=== PATIENT | male | born 1940 | race Caucasian/White ===

== ENCOUNTER 2016-08-21 22:10 | Emergency (ER) | payer MEDICARE, OTHER, SELFPAY ==
[2016-08-21 22:16] VITALS: BP 160/87
--- NOTE | 2016-08-22 00:05 | EDM.PDOC ---
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 Pt states that he was at the local bar tonight and had "2-3 drinks". Patient doesn't recall how he fell or why he was lying on the ground, but states that he didn't pass out or lose consciousness. He denies any complaints of pain or injury. Broke his upper dentures sometime between when he left the bar and when he was found lying outside beside his truck. States that he follows w/ Dr. Hendrickson regularly. Takes one baby aspirin daily. Denies history of CVA, heart attack and brain bleed. - Related Data Allergies Allergy/AdvReac Type Severity Reaction Status Date / Time No Known Allergies Allergy Verified 08/21/16 22:16 Home Meds: Home Meds Aspirin [Children's Aspirin] 81 mg PO DAILY 08/21/16 [History] Past Medical History - Past Health History Medical/Surgical History: Denies Medical/Surgical History Social & Family History - Family History Family Medical History: Noncontributory - Tobacco Use Smoking Status *Q: Never Smoker - Caffeine Use Caffeine Use: Reports: None - Alcohol Use Days Per Week of Alcohol Use: 4 Number of Drinks Per Day: 4 Total Drinks Per Week: 16 - Recreational Drug Use Recreational Drug Use: No ED ROS GENERAL - Review of Systems Review Of Systems: ROS reveals no pertinent complaints other than HPI. ED EXAM, HEAD INJURY - Physical Exam Exam: See Below Text/Narrative:: smells heavily of alcohol Exam Limited By: Intoxication General Appearance: Alert, WD/WN, No Apparent Distress, Other (speech is mildly slurred) Head: Normocephalic, Other (1cm abrasion above L eyebrow. Dried blood below nose and to lips. Abrasion to chin. No other wounds. ). No: Scalp Swelling, Scalp Tenderness, Tuttle's Sign, Facial Swelling, Facial Tenderness, Raccoon Eyes Nexus Criteria: Evidence of Intoxication. No: Posterior, Midline Cervical Tenderness, Altered Level of Consciousness, Focal Neurological Deficit, Painful Distraction Injuries Eyes: Bilateral Eye: EOMI, Normal Inspection, Nystagmus (none), PERRL Ears: Normal TMs Nose: Normal Inspection. No: Nasal Deformity, Nasal Swelling, Nasal Tenderness Throat/Mouth: Normal Inspection, Normal Oropharynx Neck: Non-Tender, Full Range of Motion, Other (No step-offs or tenderness over c -spine) Respiratory: Lungs Clear, Normal Breath Sounds Cardiovascular: Regular Rate, Rhythm, No Murmur, No Rub Neurologic: No Motor/Sensory Deficits, Normal Mood/Affect, Oriented x 3 Course - Vital Signs Text/Narrative:: 1220: awaiting call from radiology re: CT reports. Last Recorded V/S: Last Vital Signs Temp 95.9 F 08/21/16 22:11 Pulse 87 08/21/16 22:11 Resp 18 08/21/16 22:11 BP 160/87 H 08/21/16 22:11 Pulse Ox 96 08/21/16 22:11 - Orders/Labs/Meds Orders: Active Orders 24 hr Category Date Time Status Cervical Spine wo Cont [CT] Stat Exams 08/21/16 22:42 Taken Head wo Cont [CT] Stat Exams 08/21/16 22:42 Taken Max Facial Sinus wo Cont [CT] Stat Exams 08/21/16 22:42 Taken Departure - Departure Time of Disposition: 00:35 Disposition: Home, Self-Care 01 Condition: Good Clinical Impression: Fall Qualifiers: Encounter type: initial encounter Qualified Code(s): W19.XXXA - Unspecified fall, initial encounter Alcohol intoxication Qualifiers: Complication of substance-induced condition: uncomplicated Qualified Code(s): F10.920 - Alcohol use, unspecified with intoxication, uncomplicated - Discharge Information Referrals: Roderick Hendrickson MD [Primary Care Provider] - Forms: ED Department Discharge Additional Instructions: Return to ER as needed, as discussed. Phone ER nurse at [phone] with questions or concerns. - My Orders Last 24 Hours: My Active Orders 08/21/16 22:42 Cervical Spine wo Cont [CT] Stat Head wo Cont [CT] Stat Max Facial Sinus wo Cont [CT] Stat - Assessment/Plan Last 24 Hours: My Active Orders 08/21/16 22:42 Cervical Spine wo Cont [CT] Stat Head wo Cont [CT] Stat Max Facial Sinus wo Cont [CT] Stat Assessment:: fall alcohol intoxication Plan: Dr. Davis, radiologist at [facility], calls with phone report of CT head, face, c-spine: all are negative for acute changes and fractures.[pt is notified of normal results. Patient will be discharged and transported to home by local PD. Patient verbalized understanding.
== END 2016-08-22 00:50 | disposition home or self-care (01) ==
LOC: CC.ED 22:10
DX: F10.920 Alcohol use, unspecified with intoxication, uncomplicated (principal); W19.XXXA Unspecified fall, initial encounter; Z79.82 Long term (current) use of aspirin
CPT/HCPCS: 70450; 70486; 72125; 99283; 99284

== ENCOUNTER 2016-08-24 10:24 | Inpatient (IN) | payer MEDICARE, SELFPAY ==
[~2016-08-24 10:24] MED LIST: Nicotine 7 MG/24 Hr Patch TRDERM SCH
[2016-08-24] MEDS ORDERED: Acetaminophen 325 MG Tab PO PRN (11:16)
[2016-08-24] MEDS ORDERED: Ibuprofen 200 MG Tab PO PRN (11:16)
[2016-08-24] MEDS ORDERED: Sodium Chloride 0.9% 1,000 ML IV ONE (11:30)
[2016-08-24 12:09] LABS: CHLORIDE,CL 103 mEq/L (98-106); SODIUM,NA 138 mEq/L (136-145)
[2016-08-24] MEDS: Enoxaparin 40 MG/0.4 ML Syringe SUBCUT SCH (13:04)
[2016-08-24] MEDS ORDERED: Sodium Chloride 0.9% 1,000 ML IV SCH (19:30)
--- NOTE | 2016-08-24 22:14 | PCM.HP ---
H&P History of Present Illness - General Date of Service: 08/24/16 Admit Problem/Dx: Admission Diagnosis/Problem Admission Diagnosis/Problem Chest pain Source of Information: Patient History Limitations: Reports: No Limitations - History of Present Illness Initial Comments - Free Text/Narative: History and physical: History of present illness: [Patient is admitted to the [facility] unit after presenting to the clinic this morning with complaints of recent falls and episodes of chest pain. He has not had medical care in the past 5-6 years but previously followed with Dr. Hendrickson. He states that he has fallen several times since Wednesday. He denies loss of consciousness, and hitting his head, other than the episode on August 21 when he presented to the emergency room. He did not lose consciousness but fell on his face breaking his dentures. That time he was found lying beside his truck and was brought to the emergency room for evaluation. Head CT was normal. He complains of stiffness in his legs and numbness in both of his feet. he believes that these symptoms are contributing to his falls. he also admits to a feeling in his arms wrist and hips. He admits to having a squeezing sensation over his left chest wall that gradually radiates to the right side. His last episode of this was or around August 21. He denies any episodes yesterday or today. He has shortness of breath with a squeezing sensation but does not have any shortness of breath with it. He has not noticed any sweating or nausea. No abdominal pain or vomiting. No swelling in his feet or lower legs. Denies fainting.] Review of Systems: As per history of present illness and below otherwise all systems reviewed and negative. Past medical history: As per history of present illness and as reviewed below otherwise noncontributory. Surgical history: As per history of present illness and is reviewed below other amezquita noncontributory. Social history: Patient reports that he drinks 3-4 alcoholic beverages only on Fridays. One can of chewing tobacco last longer than 1 week. Family history: As per history of present illness and is reviewed below otherwise noncontributory. Physical exam: HEENT: Atraumatic, normocephalic. PERRLA. Is not wearing upper dentures. Mucous membranes are pink and moist. Throat is clear. Neck is supple no lymphadenopathy. No thyromegaly or carotid bruit. Lungs: Clear to auscultation, breath sounds equal bilaterally, chest nontender. Heart: S1-S2, regular rate and rhythm., negative for clicks, rubs, or murmur. Abdomen: Bowel sounds are normoactive. Ventral hernia noted on examination. Abdomen is Soft, nondistended, nontender. Negative for masses or guarding rebound. Negative for costovertebral tenderness. Pelvis: Stable, nontender. Genitourinary: Deferred. Rectal: Deferred. Extremities: atraumatic, and without deformity. Patient has full range of motion and walks without difficulty. No swelling or cyanosis noted to feet for lower legs. No calf pain. Neurovascular unremarkable. Hand hot braider is strong and equal bilaterally. Neuro: Awake, alert, oriented. Motor and sensory unremarkable throughout. Exam nonfocal. Diagnostics: [CBC, CMP, folate, CRP, vitamin B12, urinalysis, troponin, EKG, magnesium, chest x-ray] Impression: [Falls Chest pain] Plan: [Patient will be admitted to [facility] unit with telemetry for further workup and continued monitoring. He is in agreement with today's plan.] Definitive disposition and diagnosis is appropriate pending reevaluation and review of above. - Related Data Allergies/Adverse Reactions: Allergies Allergy/AdvReac Type Severity Reaction Status Date / Time No Known Allergies Allergy Verified 08/24/16 11:01 Home Medications: Home Meds Aspirin [Children's Aspirin] 81 mg PO DAILY 08/21/16 [History] Past Medical History - Past Health History Medical/Surgical History: Denies Medical/Surgical History Social & Family History - Family History Family Medical History: Noncontributory - Tobacco Use Smoking Status *Q: Former Smoker Years of Tobacco use: 30 Used Tobacco, but Quit: Yes Month Tobacco Last Used: unknown - Caffeine Use Caffeine Use: Reports: Coffee - Alcohol Use Days Per Week of Alcohol Use: 1 Number of Drinks Per Day: 5 Total Drinks Per Week: 5 - Recreational Drug Use Recreational Drug Use: No H&P Review of Systems - Review of Systems: Review Of Systems: ROS reveals no pertinent complaints other than HPI. Exam - Exam Exam: See Below - Vital Signs Vital Signs: Last Vital Signs Temp 98.8 F 08/24/16 19:36 Pulse 80 08/24/16 19:36 Resp 18 08/24/16 19:36 BP 158/90 H 08/24/16 19:36 Pulse Ox 95 08/24/16 19:36 Weight: 210 lb 8 oz - Patient Data Lab Results Last 24 hrs: Laboratory Results - last 24 hr 08/24/16 08/24/16 08/24/16 Range/Units 11:16 11:16 13:45 WBC 7.0 (5.0-10.0) 10^3/uL RBC 5.05 (4.50-6.00) 10^6/uL Hgb 16.2 (14.0-18.0) g/dL Hct 46.6 (40.0-54.0) % MCV 92.3 (82.0-94.0) fL MCH 32.1 H (27.0-32.0) pg MCHC 34.8 (33.0-38.0) g/dL RDW Coeff of Yoel 12.9 (11.0-15.0) % Plt Count 161 (150-400) 10^3/uL Neut % (Auto) 67.0 (35-85) % Lymph % (Auto) 23.7 (10-55) % [place] % (Auto) 8.1 (0-16) % Eos % (Auto) 0.9 (0-5) % Baso % (Auto) 0.3 (0-3) % Neut # (Auto) 4.70 (1.80-7.00) 10^3/uL Lymph # (Auto) 1.66 (1.00-4.80) 10^3/uL [place] # (Auto) 0.57 (0.00-0.80) 10^3/uL Eos # (Auto) 0.06 (0.00-0.45) 10^3/uL Baso # (Auto) 0.02 10^3/uL Sodium 138 (136-145) mEq/L Potassium 4.3 (3.5-5.0) mEq/L Chloride 103 (98-106) mEq/L Carbon Dioxide 30 (21-32) mmol/L BUN 11 (7-18) mg/dL Creatinine 1.3 (0.7-1.3) mg/dL Est Cr Clr Drug Dosing 46.04 mL/min Estimated GFR (MDRD) 54 L (>=60) mL/min Glucose 109 H (75-99) mg/dL Calcium 8.5 (8.4-10.1) mg/dL Magnesium 2.1 (1.8-2.4) mg/dL Total Bilirubin 1.9 H (0.0-1.0) mg/dL AST 20 (15-37) U/L ALT 25 (12-78) U/L Alkaline Phosphatase 75 (46-116) U/L Troponin I < 0.017 (0.00-0.06) ng/mL C-Reactive Protein 0.9 H (0.2-0.8) mg/dL Total Protein 6.8 (6.4-8.2) g/dL Albumin 3.6 (3.4-5.0) g/dL Vitamin B12 267 (193-986) PG/ML Folate 6.5 (>8.6) NG/ML Urine Color Keri (YELLOW) Urine Appearance Slightly cloudy (CLEAR) Urine pH 6.0 (4.5-8.0) Ur Specific [place] 1.013 (1.003-1.020) Urine Protein Negative (NEGATIVE) mg/dL Urine Glucose (UA) Negative (NEGATIVE) mg/dL Urine Ketones Negative (NEGATIVE) mg/dL Urine Occult Blood Negative (NEGATIVE) Urine Nitrite Negative (NEGATIVE) Urine Bilirubin Negative (NEGATIVE) Urine Urobilinogen 1.0 (0.2-1.0) EU/dL Ur Leukocyte Esterase Negative (NEGATIVE) Urine RBC Not seen (0-5) /HPF Urine WBC Not seen (0-5) /HPF Ur Epithelial Cells Few H (NOT SEEN) /HPF Urine Mucus Moderate H (NOT SEEN) /HPF Result Diagrams: 08/24/16 11:16 08/24/16 11:16 *Q Meaningful Use (ADM) - VTE *Q VTE Criteria *Q: - Stroke *Q Stroke Criteria *Q: - AMI *Q AMI Criteria *Q: Problem List Initiated/Reviewed/Updated: Yes Orders Last 24hrs: Active Orders 24 hr Category Date Time Status Patient Status [ADT] Routine ADT 08/24/16 11:16 Active Antiembolic Devices [RC] 1000,2200 Care 08/24/16 11:20 Active Cardiac Monitoring [RC] 0800,2000 Care 08/24/16 11:20 Active Height and Weight [RC] .PRN Care 08/24/16 11:16 Active May Shower [RC] .PRN Care 08/24/16 11:16 Active Oxygen Therapy [RC] .PRN Care 08/24/16 11:16 Active Up With Assistance [RC] .PRN Care 08/24/16 11:16 Active Vital Signs [RC] 0000,0400,0800,1200,1600,2000 Care 08/24/16 11:16 Active Consult to Flatbed Stitcher [CONS] Routine Cons 08/24/16 11:16 Active OT Evaluation and Treatment [CONS] Routine Cons 08/24/16 11:16 Active PT Evaluation and Treatment [CONS] Routine Cons 08/24/16 11:16 Active Regular Diet [DIET] Diet 08/24/16 Lunch Active Chest 2V [CR] Stat Exams 08/24/16 11:16 Taken Acetaminophen [Tylenol] Med 08/24/16 11:16 Active 650 mg PO Q4H PRN Enoxaparin [Lovenox] Med 08/24/16 08:00 Active 40 mg SUBCUT Q24H Ibuprofen [Motrin] Med 08/24/16 11:16 Active 600 mg PO Q6H PRN Sodium Chloride 0.9% [Normal Saline] 1,000 ml Med 08/24/16 19:30 Active IV ASDIRECTED Antiembolic Hose [OM.PC] Per Unit Routine Oth 08/24/16 11:20 Ordered Resuscitation Status Routine Resus Stat 08/24/16 11:16 Ordered Medication Orders Acetaminophen (Tylenol) 650 mg PO Q4H PRN PRN Reason: Pain (Mild 1-3)/fever Enoxaparin Sodium (Lovenox) 40 mg SUBCUT Q24H [facility] Last Admin: 08/24/16 13:04 Dose: 40 mg Sodium Chloride (Normal Saline) 1,000 mls @ 30 mls/hr IV ASDIRECTED [facility] PRN Reason: KVO Stop: 08/28/16 19:31 Last Admin: 08/24/16 20:53 Dose: 30 mls/hr Ibuprofen (Motrin) 600 mg PO Q6H PRN PRN Reason: Pain (mild 1-3) Assessment/Plan Comment:: Assessment: #1 chest pain #2 falls Plan: We'll admit to [facility] with telemetry. EKG chest x-ray and labs are ordered. Patient may require emergent cardiac consultation depending troponin and if he experiences any EKG changes or symptoms. Patient verbalizes understanding of today's plan and is in agreement.
[2016-08-24] MEDS ORDERED: Temazepam 15 MG Cap PO ONE (22:59)
[2016-08-25] MEDS: Enoxaparin 40 MG/0.4 ML Syringe SUBCUT SCH (07:33)
[2016-08-25] MEDS ORDERED: Sodium Chloride 0.9% 10 ML Syringe FLUSH PRN (15:59)
--- NOTE | 2016-08-25 16:15 | PCM.PN ---
- General Info Date of Service: 08/25/16 Admission Dx/Problem (Free Text): Admission Diagnosis/Problem Admission Diagnosis/Problem Chest pain, falls Subjective Update: [facility] through the clinic for complaints of chest pain and falls. Patient is doing well while inpatient. He states that the numbness in his feet has significantly improved but continues to be present. He reports mild chest discomfort that he did not report to his nurse earlier this morning. Patient had a few second run of V tach on telemetry while he was sleeping last night and again early this morning. Has not had any episodes during his waking hours. EKG completed after episode was normal sinus rhythm. Patient states that he is overall feeling improved today. Functional Status: Reports: tolerating diet, ambulating - Review of Systems General: Reports: No Symptoms HEENT: Reports: no symptoms Pulmonary: Reports: no symptoms Cardiovascular: Reports: Chest Pain. Denies: Dyspnea on Exertion, Edema, Lightheadedness Gastrointestinal: Reports: No symptoms Genitourinary: Reports: no symptoms Musculoskeletal: Reports: no symptoms Neurological: Reports: No Symptoms Psychiatric: Reports: no symptoms - Patient Data Vitals - most recent: Last Vital Signs Temp 97.7 F 08/25/16 11:45 Pulse 78 08/25/16 11:45 Resp 16 08/25/16 11:45 BP 165/84 H 08/25/16 11:45 Pulse Ox 96 08/25/16 11:45 Weight - most recent: 210 lb 8 oz I&O - last 24 hours: Intake & Output 08/25/16 08/25/16 08/25/16 06:59 14:59 22:59 Intake Total 860 Balance 860 Lab Results last 24 hrs: Laboratory Results - last 24 hr 08/25/16 Range/Units 05:11 Troponin I < 0.017 (0.00-0.06) ng/mL Med Orders - Current: Current Medications Acetaminophen (Tylenol) 650 mg PO Q4H PRN PRN Reason: Pain (Mild 1-3)/fever Enoxaparin Sodium (Lovenox) 40 mg SUBCUT Q24H [facility] Last Admin: 08/25/16 07:33 Dose: 40 mg Ibuprofen (Motrin) 600 mg PO Q6H PRN PRN Reason: Pain (mild 1-3) Sodium Chloride (Saline Flush) 10 ml FLUSH ASDIRECTED PRN PRN Reason: Keep Vein Open Discontinued Medications Sodium Chloride (Normal Saline) 1,000 mls @ 125 mls/hr IV ONETIME ONE Stop: 08/24/16 19:29 Last Admin: 08/24/16 12:57 Dose: 125 mls/hr Sodium Chloride (Normal Saline) 1,000 mls @ 30 mls/hr IV ASDIRECTED BARRON PRN Reason: KVO Stop: 08/28/16 19:31 Last Admin: 08/24/16 20:53 Dose: 30 mls/hr Nicotine (Habitrol) 7 mg TRDERM DAILY [facility] Last Admin: 08/24/16 12:33 Dose: Not Given Temazepam (Restoril) 15 mg PO ONETIME ONE Stop: 08/24/16 23:00 Last Admin: 08/24/16 23:14 Dose: 15 mg - Exam General: alert, oriented Neck: supple Lungs: Clear to auscultation, Normal respiratory effort Cardiovascular: Regular Rate, Regular Rhythm Abdomen: bowel sounds present, soft, no tenderness Extremities: no edema Neurological: no new focal deficit Psy/Mental Status: alert, normal affect - Problem List Review Problem List Initiated/Reviewed/Updated: Yes - My Orders Last 24 Hours: My Active Orders 08/24/16 22:56 EKG Documentation Completion [RC] STAT 08/25/16 15:59 Sodium Chloride 0.9% [Saline Flush] 10 ml FLUSH ASDIRECTED PRN Convert IV to Saline Lock [OM.PC] Routine - Plan Plan:: Assessment: #1 chest pain #2 falls Plan: Continue telemetry, current medications. Dr. Hendrickson is to see patient on rounds tomorrow morning. Patient will likely cardiology consultation.
[2016-08-25] MEDS ORDERED: Temazepam 15 MG Cap PO ONE (21:19)
[2016-08-26] MEDS: Enoxaparin 40 MG/0.4 ML Syringe SUBCUT SCH (07:53)
--- NOTE | 2016-08-26 12:59 | PN ---
DATE: 08/26/2016 S: A 76-year-old gentleman admitted with chest pain on Wednesday. Talking with him today, he has no further chest pain. Complains lot of pain in his legs. O: NECK: On examination, neck was supple. CHEST: Clear. HEART: Cardiac sounds are good. EXTREMITIES: He had tenderness over his knees, but I really did not see any other pain. So maybe coming from his back. P: Get appropriate lab work today, observe him, make sure PT works on him. KRISTEN/SINAI /[id number]
[2016-08-26] MEDS ORDERED: Temazepam 15 MG Cap PO PRN (16:30)
[2016-08-27] MEDS: Enoxaparin 40 MG/0.4 ML Syringe SUBCUT SCH (07:50)
[2016-08-27 13:28] VITALS: BP 155/84
--- NOTE | 2016-08-28 07:03 | DISCH ---
HOSPITAL COURSE: Silvestre Lowery 76-year-old gentleman came in with some chest pain, back pain, unable to ambulate, admitted to the hospital, placed on telemetry to look good. EKG, chest x-ray, full cardiac workup was good as is with the rest of his lab and x-ray. PHYSICAL EXAMINATION ON DISCHARGE: NECK: Supple. CHEST: Clear. CARDIAC: Regular. GENERAL: Is up moving around. Physical therapy had helped him dramatically, demanded to go home. DISPOSITION: The patient will be discharged home. I will recheck him next Wednesday. DISCHARGE MEDICATIONS: ASA as at home. DISCHARGE DIAGNOSIS: 1. CHEST PAIN, PROBABLE MUSCULOSKELETAL. 2. OSTEOARTHRITIS OF LUMBAR SPINE. KRISTEN/SINAI /[id number]
== END 2016-08-27 15:40 | disposition home or self-care (01) | DRG 313 ==
LOC: UNDOADMIN 10:24 → CC.MS 10:24
PROVIDERS: ADMIT Nurse Practitioner Family; ATTEND General Practice
DX: R07.9 Chest pain, unspecified (principal); M47.896 Other spondylosis, lumbar region; R29.6 Repeated falls; Z87.891 Personal history of nicotine dependence
CPT/HCPCS: 36415; 71020; 80053; 81001; 82607; 82746; 83735; 83880; 84439; 84443; 84484; 85025; 85379; 85651; 86140; 93005; 93306; 97110-GP; 97112-GP; 97161-GP; A9270-GY; J1650; J7030

== ENCOUNTER 2018-09-28 08:49 | Emergency (ER) | payer MEDICARE, MEDICAID ==
[2018-09-28 09:30] LABS: CHLORIDE,CL 102 mEq/L (98-106); SODIUM,NA 137 mEq/L (136-145)
--- NOTE | 2018-09-28 11:15 | EDM.PDOC ---
ED HPI GENERAL MEDICAL PROBLEM - General Chief Complaint: General Stated Complaint: CHEST PAIN Time Seen by Provider: 09/28/18 09:45 Source of Information: Reports: Patient History Limitations: Reports: No Limitations - History of Present Illness INITIAL COMMENTS - FREE TEXT/NARRATIVE: Silvestre is a 78 yo male who presents to the ED per wheelchair after presenting to the clinic complaining of chest pain. Silvestre states that he has been having pain off and on in his mid chest for the last two to three days. Pt states that he has been having pain in his abdomen too, generalized. Also feels nauseated and has decreased appetite. He is vague with his complaints. Last bowel movement a couple days ago but that is typical for him. Pain worse to chest and abdomen after eating. States the pain in his chest has subsided now. Still feels unsettled in his abdomen. Middle Chest Pain Score (Numeric/FACES): 5 - Related Data Allergies Allergy/AdvReac Type Severity Reaction Status Date / Time No Known Allergies Allergy Verified 09/28/18 09:26 Home Meds: Home Meds Aspirin [Children's Aspirin] 81 mg PO DAILY 08/21/16 [History] Sertraline HCl 50 mg PO DAILY 09/28/18 [History] Zolpidem Tartrate 10 mg PO BEDTIME PRN 09/28/18 [History] Past Medical History - Past Health History Medical/Surgical History: Denies Medical/Surgical History HEENT History: Reports: None Cardiovascular History: Reports: None Respiratory History: Reports: None Gastrointestinal History: Reports: Chronic Constipation Genitourinary History: Reports: None Musculoskeletal History: Reports: Back Pain, Chronic, Other (See Below) (spinal stenosis) Psychiatric History: Reports: Anxiety, Depression Social & Family History - Family History Family Medical History: Noncontributory - Tobacco Use Smoking Status *Q: Former Smoker Years of Tobacco use: 30 Packs/Tins Daily: 1 Used Tobacco, but Quit: Yes Month/Year Tobacco Last Used: 20 years ago - Caffeine Use Caffeine Use: Reports: Coffee ED ROS GENERAL - Review of Systems Review Of Systems: See Below Constitutional: Reports: Decreased Appetite. Denies: Fever, Chills HEENT: Reports: No Symptoms Respiratory: Reports: No Symptoms Cardiovascular: Reports: Chest Pain. Denies: Blood Pressure Problem, Edema, Lightheadedness, Palpitations GI/Abdominal: Reports: Abdominal Pain, Constipation, Decreased Appetite, Flatus , Nausea. Denies: Bloody Stool, Difficulty Swallowing, Vomiting : Reports: No Symptoms Musculoskeletal: Reports: Back Pain, Muscle Stiffness (bilateral lower legs, chronic) Skin: Reports: No Symptoms Neurological: Reports: No Symptoms Psychiatric: Reports: Anxiety ED EXAM, GENERAL - Physical Exam Exam: See Below Exam Limited By: No Limitations General Appearance: Alert, WD/WN, No Apparent Distress Eye Exam: Bilateral Eye: Normal Inspection Ears: Normal External Exam, Normal Canal, Normal TMs, Hearing Loss Nose: Normal Inspection, Normal Mucosa, No Blood Throat/Mouth: Normal Inspection, Normal Gums, Normal Oropharynx, No Airway Compromise Head: Atraumatic, Normocephalic Neck: Normal Inspection, Supple Respiratory/Chest: No Respiratory Distress, Lungs Clear, Normal Breath Sounds, No Accessory Muscle Use, Decreased Breath Sounds (right lower lobe) Cardiovascular: Regular Rate, Rhythm, No Edema, No Murmur Peripheral Pulses: 2+: Dorsalis Pedis (L), Dorsalis Pedis (R) GI/Abdominal: Normal Bowel Sounds, Soft, No Organomegaly, No Distention, No Mass , Tender (mild generalized, states feels like knots in his stomach). No: Rebound Extremities: Normal Inspection, No Pedal Edema Neurological: Alert, Oriented, Normal Cognition, No Motor/Sensory Deficits Psychiatric: Normal Affect, Normal Mood Skin Exam: Warm, Dry, Intact, Normal Color Course - Vital Signs Last Recorded V/S: Last Vital Signs Temp 96.8 F 09/28/18 09:41 Pulse 64 09/28/18 09:54 Resp 18 09/28/18 09:41 BP 154/75 H 09/28/18 09:54 Pulse Ox 98 09/28/18 09:54 - Orders/Labs/Meds Orders: Active Orders 24 hr Category Date Time Status Abdomen 2V AP Flat Upright [CR] Stat Exams 09/28/18 09:27 Taken Chest 2V [CR] Stat Exams 09/28/18 08:57 Taken EKG 12 Lead [EK] Routine Ther 09/28/18 08:55 Ordered Labs: Laboratory Tests 09/28/18 09/28/18 09/28/18 Range/Units 09:00 09:00 09:00 WBC 7.5 (5.0-10.0) 10^3/uL RBC 5.19 (4.50-6.00) 10^6/uL Hgb 17.1 (14.0-18.0) g/dL Hct 48.3 (40.0-54.0) % MCV 93.1 (82.0-94.0) fL MCH 32.9 H (27.0-32.0) pg MCHC 35.4 (33.0-38.0) g/dL RDW Coeff of Yoel 12.8 (11.0-15.0) % Plt Count 163 (150-400) 10^3/uL Neut % (Auto) 59.7 (35-85) % Lymph % (Auto) 31.6 (10-55) % [place] % (Auto) 7.6 (0-16) % Eos % (Auto) 0.8 (0-5) % Baso % (Auto) 0.3 (0-3) % Neut # (Auto) 4.47 (1.80-7.00) 10^3/uL Lymph # (Auto) 2.36 (1.00-4.80) 10^3/uL [place] # (Auto) 0.57 (0.00-0.80) 10^3/uL Eos # (Auto) 0.06 (0.00-0.45) 10^3/uL Baso # (Auto) 0.02 10^3/uL PT 9.8 (9.7-12.3) SEC INR 0.95 (0.92-1.18) APTT 28.3 (23.2-32.3) SEC Sodium 137 (136-145) mEq/L Potassium 4.3 (3.5-5.0) mEq/L Chloride 102 (98-106) mEq/L Carbon Dioxide 28 (21-32) mmol/L BUN 15 (7-18) mg/dL Creatinine 1.2 (0.7-1.3) mg/dL Est Cr Clr Drug Dosing 46.67 mL/min Estimated GFR (MDRD) 58 L (>=60) mL/min Glucose 106 H (75-99) mg/dL Calcium 9.1 (8.4-10.1) mg/dL Total Bilirubin 1.9 H (0.0-1.0) mg/dL AST 16 (15-37) U/L ALT 23 (12-78) U/L Alkaline Phosphatase 73 (46-116) U/L Lactate Dehydrogenase 137 (100-190) U/L Creatine Kinase 24 L (35-232) U/L Troponin I < 0.017 (0.00-0.06) ng/mL C-Reactive Protein < 0.2 L (0.2-0.8) mg/dL Total Protein 6.6 (6.4-8.2) g/dL Albumin 3.7 (3.4-5.0) g/dL Departure - Departure Time of Disposition: 11:16 Disposition: Home, Self-Care 01 Clinical Impression: Atypical chest pain GERD (gastroesophageal reflux disease) Qualifiers: Esophagitis presence: esophagitis presence not specified Qualified Code(s): K21.9 - Gastro-esophageal reflux disease without esophagitis - Discharge Information Instructions: Heartburn, [id number], Nonspecific Chest Pain Forms: ED Department Discharge Additional Instructions: 1) Lexiscan scheduled for heart tomorrow morning, instructions given 2) Recommend taking Prilosec over the counter daily for 2 weeks 3) Return to ED if symptoms worsen or any concerns at all 4) Follow up with primary provider in 1 week for recheck. - Problem List & Annotations (1) Atypical chest pain SNOMED Code(s): 223605100 Code(s): R07.89 - OTHER CHEST PAIN Status: Acute Current Visit: Yes (2) GERD (gastroesophageal reflux disease) SNOMED Code(s): 739893302 Code(s): K21.9 - GASTRO-ESOPHAGEAL REFLUX DISEASE WITHOUT ESOPHAGITIS Status: Acute Current Visit: Yes Qualifiers: Esophagitis presence: esophagitis presence not specified Qualified Code(s) : K21.9 - Gastro-esophageal reflux disease without esophagitis - My Orders Last 24 Hours: My Active Orders 09/28/18 08:55 EKG 12 Lead [EK] Routine 09/28/18 08:57 Chest 2V [CR] Stat 09/28/18 09:27 Abdomen 2V AP Flat Upright [CR] Stat - Assessment/Plan Last 24 Hours: My Active Orders 09/28/18 08:55 EKG 12 Lead [EK] Routine 09/28/18 08:57 Chest 2V [CR] Stat 09/28/18 09:27 Abdomen 2V AP Flat Upright [CR] Stat Plan: Silvestre's chest pain subsided while in ED, it appears to be daily and intermittent. Ashley scheduled for tomorrow with Dr. De La Torre since he has spinal stenosis and unable to do treadmill portion. Recommend starting over the counter Prilosec daily as well. Cardiac work up is unremarkable. EKG showed NSR at 64 bpm. CRP was normal. No definitive cause found.
[2018-09-28 11:16] VITALS: BP 142/73; PULSE 61
== END 2018-09-28 11:30 | disposition home or self-care (01) ==
LOC: CC.ED 08:49
DX: K21.9 Gastro-esophageal reflux disease without esophagitis (principal); R07.89 Other chest pain; F41.9 Anxiety disorder, unspecified; F32.9 Major depressive disorder, single episode, unspecified; Z79.82 Long term (current) use of aspirin; Z79.899 Other long term (current) drug therapy; Z87.891 Personal history of nicotine dependence
CPT/HCPCS: 36415; 71046; 74019; 80053; 82550; 83615; 84484; 85025; 85610; 85730; 86140; 93005; 93010; 99284; 99285-25

== ENCOUNTER 2019-03-15 21:16 | Inpatient (IN) | payer MEDICARE, MEDICAID ==
[2019-03-15 22:20] LABS: CHLORIDE,CL 98 mEq/L (98-106); SODIUM,NA 136 mEq/L (136-145)
[2019-03-15] MEDS ORDERED: Ondansetron 4 MG Tab.DIS PO ONE (22:34)
--- NOTE | 2019-03-15 23:33 | EDM.PDOC ---
ED HPI GENERAL MEDICAL PROBLEM - General Chief Complaint: Head Injury Stated Complaint: fall with hematoma back of head Time Seen by Provider: 03/15/19 21:30 Source of Information: Reports: Patient, EMS, Family History Limitations: Reports: Intoxication - History of Present Illness INITIAL COMMENTS - FREE TEXT/NARRATIVE: Patient presents to ER after a fall in front of his home. Patient had been up at the bar, drove home and was walking in to his apartment and fell. Is unsure why he fell, thinks maybe his legs gave out or "he passed out". Admits to drinking 5-6 whiskey drinks. Did crawl in to the apartment and was able to get help. Was placed in c-collar at the scene by EMS. Denies any head pain or neck discomfort. He did have an emesis prior to arrival. Has been having issues with weakness in his legs for several years, has caused falls in the past. On arrival to ER, states "doesn't feel good" but has no specific complaints except nausea. GCS on arrival 15. Onset: Today, Sudden Duration: Minutes: Location: Reports: Generalized Quality: Reports: Ache Severity: Mild Associated Symptoms: Reports: Nausea/Vomiting, Weakness. 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 - Related Data Allergies Allergy/AdvReac Type Severity Reaction Status Date / Time No Known Allergies Allergy Verified 03/15/19 22:08 Home Meds: Home Meds Acetaminophen [Tylenol] 325 mg PO BID PRN 03/15/19 [History] Sertraline HCl 150 mg PO BEDTIME 03/15/19 [History] Vit A/C/E AC/Znox/Cupric Oxide [Eye Vitamin-Minerals Tablet] 1 each PO DAILY [History] tiZANidine HCl [Tizanidine HCl] 4 mg PO BEDTIME 03/15/19 [History] Past Medical History - Past Health History Medical/Surgical History: Denies Medical/Surgical History HEENT History: Reports: None Cardiovascular History: Reports: None Respiratory History: Reports: None Gastrointestinal History: Reports: Chronic Constipation Genitourinary History: Reports: None Musculoskeletal History: Reports: Back Pain, Chronic, Other (See Below) Other Musculoskeletal History: chronic leg pain. Psychiatric History: Reports: Anxiety, Depression Social & Family History - Family History Family Medical History: Noncontributory - Tobacco Use Smoking Status *Q: Never Smoker - Caffeine Use Caffeine Use: Reports: Coffee ED ROS GENERAL - Review of Systems Review Of Systems: See Below Constitutional: Reports: Malaise, Weakness, Fatigue. Denies: Fever, Chills, Decreased Appetite HEENT: Denies: Ear Pain, Nosebleed, Sinus Problem, Throat Pain, Vertigo, Vision Change Respiratory: Denies: Shortness of Breath, Wheezing, Cough Cardiovascular: Denies: Chest Pain, Edema, Lightheadedness Endocrine: Reports: Fatigue GI/Abdominal: Reports: Nausea, Vomiting. Denies: Abdominal Pain, Constipation, Diarrhea, Decreased Appetite : Reports: No Symptoms Musculoskeletal: Reports: Back Pain, Leg Pain (chronic in nature) Skin: Reports: Wound (scraped knees, skin tear to right elbow, right hand) Neurological: Denies: Headache Psychiatric: Reports: No Symptoms ED EXAM, HEAD INJURY - Physical Exam Exam: See Below Text/Narrative:: On arrival, patient is alert, intoxicated but answers questions appropriately. Is unsure why he fell Airway is patent, lung sounds are diminished but clear Cardiac regular S1, S2 Abdomen/pelvis is soft, nontender. No pelvic pain C-collar intact. GCS 15. Has abrasion to right elbow, right hand and bilateral knees. Exam Limited By: Intoxication General Appearance: Alert, WD/WN, No Apparent Distress Head: Atraumatic, Normocephalic Nexus Criteria: Evidence of Intoxication. No: Posterior, Midline Cervical Tenderness, Altered Level of Consciousness, Focal Neurological Deficit, Painful Distraction Injuries Eyes: Bilateral Eye: EOMI, PERRL Ears: Normal External Exam, Normal TMs Nose: Normal Inspection, Normal Mucousa, No Blood Throat/Mouth: Normal Inspection, Normal Oropharynx Neck: Non-Tender, Other (c-collar intact) Respiratory: No Respiratory Distress, Decreased Breath Sounds Cardiovascular: Regular Rate, Rhythm GI/Abdominal Exam: Normal Bowel Sounds, Soft, Non-Tender Back Exam: Normal Inspection, Full Range of Motion Extremities: Normal Inspection, No Pedal Edema, Other (simple skin tear to right elbow and right 5th digit. Abrasions to knees) Neurologic: Alert, Oriented x 3 Skin: Normal Color, Warm/Dry - [place] Coma Score Best Eye Response ([place]): (4) Open Spontaneously Best Verbal Response ([place]): (5) Oriented Best Motor Response ([place]): (6) Obeys Commands Course - Vital Signs Last Recorded V/S: Last Vital Signs Temp 98.6 F 03/16/19 12:00 Pulse 98 03/16/19 12:00 Resp 18 03/16/19 12:00 BP 151/69 H 03/16/19 12:00 Pulse Ox 99 03/16/19 12:00 - Orders/Labs/Meds Orders: Active Orders 24 hr Category Date Time Status Neuro Check [RC] 0000,0400,0800,1200,1600,1999 Care 03/15/19 23:58 Active Oxygen Therapy [RC] .PRN Care 03/15/19 23:58 Active Up With Assistance [RC] .PRN Care 03/15/19 23:58 Active Vital Signs [RC] 0000,0400,0800,1200,1600,1999 Care 03/15/19 23:58 Active Consult to Case Management/Nut And Bolt Assembler [CONS] Cons 03/16/19 08:39 Active Routine Abdomen Pelvis w Cont [CT] Routine Exams 03/16/19 09:28 Taken Brain wo Cont [MR] Routine Exams 03/17/19 08:15 Ordered Cervical Spine wo Cont [CT] Stat Exams 03/15/19 21:45 Taken Chest 2V [CR] Routine Exams 03/16/19 08:38 Taken Chest w Cont [CT] Routine Exams 03/16/19 09:28 Taken Head wo Cont [CT] Stat Exams 03/15/19 21:27 Taken Thoracic Spine wo Cont [CT] Routine Exams 03/16/19 05:11 Taken Acetaminophen [Tylenol] Med 03/15/19 23:58 Active 650 mg PO Q4H PRN Beta-Carotene(A) w/C & E/Min [Prosight] Med 03/16/19 08:00 Active 1 tab PO DAILY Lactated Ringers [Ringers, Lactated] 1,000 ml Med 03/15/19 23:58 Active IV ASDIRECTED Ondansetron [Zofran ODT] Med 03/15/19 23:58 Active 4 mg PO Q4H PRN Ondansetron [Zofran] Med 03/15/19 23:58 Active 4 mg IV Q4H PRN Sertraline [Zoloft] Med 03/16/19 20:00 Active 150 mg PO BEDTIME Sodium Chloride 0.9% [Saline Flush] Med 03/15/19 23:58 Active 10 ml FLUSH ASDIRECTED PRN tiZANidine [Zanaflex] Med 03/16/19 20:00 Active 4 mg PO BEDTIME Peripheral IV Insertion Adult [OM.PC] Routine Oth 03/15/19 23:58 Ordered Resuscitation Status Routine Resus Stat 03/15/19 23:34 Ordered Medication Orders Acetaminophen (Tylenol) 650 mg PO Q4H PRN PRN Reason: Pain (Mild 1-3)/fever Ceftriaxone Sodium (Rocephin) 1 gm IVPUSH Q24H [facility] Lactated Ringer's (Ringers, Lactated) 1,000 mls @ 75 mls/hr IV ASDIRECTED [facility] Last Admin: 03/16/19 00:50 Dose: 75 mls/hr Clindamycin Phosphate 300 mg/ (Premix) 50 mls @ 100 mls/hr IV Q6H [facility] Multivitamins/Minerals (Prosight) 1 tab PO DAILY [facility] Last Admin: 03/16/19 08:13 Dose: 1 tab Ondansetron HCl (Zofran Odt) 4 mg PO Q4H PRN PRN Reason: nausea, able to take PO Last Admin: 03/16/19 08:13 Dose: 4 mg Admin: 03/16/19 03:25 Dose: 4 mg Ondansetron HCl (Zofran) 4 mg IV Q4H PRN PRN Reason: Nausea/Vomiting Sertraline HCl (Zoloft) 150 mg PO BEDTIME [facility] Sodium Chloride (Saline Flush) 10 ml FLUSH ASDIRECTED PRN PRN Reason: Keep Vein Open Tizanidine HCl (Zanaflex) 4 mg PO BEDTIME [facility] Labs: Laboratory Tests 03/15/19 03/15/19 03/16/19 Range/Units 22:00 22:00 06:55 WBC 12.1 H 9.3 (5.0-10.0) 10^3/uL RBC 5.07 4.92 (4.50-6.00) 10^6/uL Hgb 15.7 15.2 (14.0-18.0) g/dL Hct 46.2 44.8 (40.0-54.0) % MCV 91.1 91.1 (82.0-94.0) fL MCH 31.0 30.9 (27.0-32.0) pg MCHC 34.0 33.9 (33.0-38.0) g/dL RDW Coeff of Yoel 13.4 13.2 (11.0-15.0) % Plt Count 215 211 (150-400) 10^3/uL Neut % (Auto) 53.4 68.0 (35-85) % Lymph % (Auto) 38.5 23.9 (10-55) % [place] % (Auto) 6.4 7.0 (0-16) % Eos % (Auto) 1.5 0.9 (0-5) % Baso % (Auto) 0.2 0.2 (0-3) % Neut # (Auto) 6.44 6.31 (1.80-7.00) 10^3/uL Lymph # (Auto) 4.64 2.22 (1.00-4.80) 10^3/uL [place] # (Auto) 0.77 0.65 (0.00-0.80) 10^3/uL Eos # (Auto) 0.18 0.08 (0.00-0.45) 10^3/uL Baso # (Auto) 0.02 0.02 10^3/uL Sodium 136 (136-145) mEq/L Potassium 3.9 (3.5-5.0) mEq/L Chloride 98 (98-106) mEq/L Carbon Dioxide 25 (21-32) mmol/L BUN 18 (7-18) mg/dL Creatinine 1.1 (0.7-1.3) mg/dL Est Cr Clr Drug Dosing 45.60 mL/min Estimated GFR (MDRD) > 60 (>=60) mL/min Glucose 122 H (75-99) mg/dL Calcium 8.8 (8.4-10.1) mg/dL Total Bilirubin 0.6 (0.0-1.0) mg/dL AST 18 (15-37) U/L ALT 20 (12-78) U/L Alkaline Phosphatase 102 (46-116) U/L Troponin I < 0.017 (0.00-0.06) ng/mL Total Protein 6.9 (6.4-8.2) g/dL Albumin 3.7 (3.4-5.0) g/dL Ethyl Alcohol 201 H (0-3) mg/dL 03/16/19 Range/Units 06:55 WBC (5.0-10.0) 10^3/uL RBC (4.50-6.00) 10^6/uL Hgb (14.0-18.0) g/dL Hct (40.0-54.0) % MCV (82.0-94.0) fL MCH (27.0-32.0) pg MCHC (33.0-38.0) g/dL RDW Coeff of Yoel (11.0-15.0) % Plt Count (150-400) 10^3/uL Neut % (Auto) (35-85) % Lymph % (Auto) (10-55) % [place] % (Auto) (0-16) % Eos % (Auto) (0-5) % Baso % (Auto) (0-3) % Neut # (Auto) (1.80-7.00) 10^3/uL Lymph # (Auto) (1.00-4.80) 10^3/uL [place] # (Auto) (0.00-0.80) 10^3/uL Eos # (Auto) (0.00-0.45) 10^3/uL Baso # (Auto) 10^3/uL Sodium 137 (136-145) mEq/L Potassium 4.4 (3.5-5.0) mEq/L Chloride 99 (98-106) mEq/L Carbon Dioxide 27 (21-32) mmol/L BUN 17 (7-18) mg/dL Creatinine 1.0 (0.7-1.3) mg/dL Est Cr Clr Drug Dosing 50.16 mL/min Estimated GFR (MDRD) > 60 (>=60) mL/min Glucose 95 (75-99) mg/dL Calcium 8.3 L (8.4-10.1) mg/dL Total Bilirubin (0.0-1.0) mg/dL AST (15-37) U/L ALT (12-78) U/L Alkaline Phosphatase (46-116) U/L Troponin I (0.00-0.06) ng/mL Total Protein (6.4-8.2) g/dL Albumin (3.4-5.0) g/dL Ethyl Alcohol (0-3) mg/dL Meds: Medications Generic Name Dose Route Start Last Admin Trade Name Baldomero PRN Reason Stop Dose Admin Acetaminophen 650 mg 03/15/19 23:58 Tylenol PO Q4H PRN Pain (Mild 1-3)/fever Ceftriaxone Sodium 1 gm 03/17/19 08:00 Rocephin IVPUSH Q24H [facility] Lactated Ringer's 1,000 mls @ 75 mls/hr 03/15/19 23:58 03/16/19 00:50 Ringers, Lactated IV 75 mls/hr ASDIRECTED [facility] Administration Clindamycin Phosphate 300 mg/ 50 mls @ 100 mls/hr 03/16/19 12:00 Premix IV Q6H [facility] Multivitamins/Minerals 1 tab 03/16/19 08:00 03/16/19 08:13 Prosight PO 1 tab DAILY [facility] Administration Ondansetron HCl 4 mg 03/15/19 23:58 03/16/19 08:13 Zofran Odt PO 4 mg Q4H PRN Administration nausea, able to take PO Ondansetron HCl 4 mg 03/15/19 23:58 Zofran IV Q4H PRN Nausea/Vomiting Sertraline HCl 150 mg 03/16/19 20:00 Zoloft PO BEDTIME [facility] Sodium Chloride 10 ml 03/15/19 23:58 Saline Flush FLUSH ASDIRECTED PRN Keep Vein Open Tizanidine HCl 4 mg 03/16/19 20:00 Zanaflex PO BEDTIME [facility] Discontinued Medications Generic Name Dose Route Start Last Admin Trade Name Baldomero PRN Reason Stop Dose Admin Acetaminophen 325 mg 03/15/19 23:58 Tylenol PO 03/16/19 00:56 BID PRN Pain Barium Sulfate 900 ml 03/16/19 11:25 03/16/19 11:47 Readi-Cat 2 PO 03/16/19 11:26 900 ml ONETIME ONE Administration Ceftriaxone Sodium 1 gm 03/16/19 11:10 03/16/19 11:31 Rocephin IM 03/16/19 11:11 Not Given ONETIME ONE Ceftriaxone Sodium 1 gm 03/16/19 11:25 03/16/19 11:59 Rocephin IVPUSH 03/16/19 11:26 1 gm ONETIME ONE Administration Azithromycin 500 mg/ Sodium 250 mls @ 250 mls/hr 03/16/19 11:15 03/16/19 12: 03 Chloride IV Not Given Q24H [facility] Iopamidol 100 ml 03/16/19 11:25 03/16/19 11:46 Isovue-370 (76%) IVPUSH 03/16/19 11:26 100 ml ONETIME ONE Administration Ondansetron HCl 4 mg 03/15/19 22:34 03/15/19 22:36 Zofran Odt PO 03/15/19 22:35 4 mg ONETIME ONE Administration - Re-Assessments/Exams Free Text/Narrative Re-Assessment/Exam: 03/15/[address] scan negative of head and neck. Does note T1-T3 compression fractures. Radiologist suggested dedicated CT of thoracic spine when able. Labs essentially negative, blood alcohol 201. Did have another emesis in ER, Zofran given. Will admit for IV fluids, CT scan and neurological monitoring Departure - Departure Time of Disposition: 23:29 Disposition: Refer to Observation Condition: Fair Clinical Impression: Intoxication Fall Qualifiers: Encounter type: initial encounter Qualified Code(s): W19.XXXA - Unspecified fall, initial encounter Thoracic compression fracture Qualifiers: Encounter type: initial encounter Thoracic vertebra fracture level: T2 Qualified Code(s): S22.020A - Wedge compression fracture of second thoracic vertebra, initial encounter for closed fracture - Discharge Information *PRESCRIPTION DRUG MONITORING PROGRAM REVIEWED*: No *COPY OF PRESCRIPTION DRUG MONITORING REPORT IN PATIENT JIMMY: No Sepsis Event Note - Evaluation Sepsis Screening Result: No Definite Risk - Focused Exam Vital Signs: Vital Signs Temp Pulse Resp BP Pulse Ox 03/16/19 08:00 98.0 F 108 H 18 143/80 H 90 L 03/16/19 03:29 96.7 F 94 20 134/75 97 03/16/19 01:12 89 97 Date Exam was Performed: 03/16/19 Time Exam was Performed: 12:10 - Problem List & Annotations (1) Fall SNOMED Code(s): 4354727, 947701496 Code(s): W19.XXXA - UNSPECIFIED FALL, INITIAL ENCOUNTER Status: Acute Priority: High Current Visit: No Qualifiers: Encounter type: initial encounter Qualified Code(s): W19.XXXA - Unspecified fall, initial encounter (2) Intoxication SNOMED Code(s): 42995046 Code(s): NWW3628 - Status: Acute Priority: High Current Visit: No (3) Thoracic compression fracture SNOMED Code(s): 380366575 Code(s): S22.000A - WEDGE COMPRESSION FRACTURE OF UNSP THORACIC VERTEBRA, INIT Status: Acute Priority: High Current Visit: No Qualifiers: Encounter type: initial encounter Thoracic vertebra fracture level: T2 Qualified Code(s): S22.020A - Wedge compression fracture of second thoracic vertebra, initial encounter for closed fracture - Problem List Review Problem List Initiated/Reviewed/Updated: Yes - My Orders Last 24 Hours: My Active Orders 03/15/19 21:27 Head wo Cont [CT] Stat 03/15/19 21:45 Cervical Spine wo Cont [CT] Stat 03/15/19 23:34 Resuscitation Status Routine 03/15/19 23:58 Neuro Check [RC] 0000,0400,0800,1200,1600,2000 Oxygen Therapy [RC] .PRN Up With Assistance [RC] .PRN Vital Signs [RC] 0000,0400,0800,1200,1600,2000 Acetaminophen [Tylenol] 650 mg PO Q4H PRN Lactated Ringers [Ringers, Lactated] 1,000 ml IV ASDIRECTED Ondansetron [Zofran ODT] 4 mg PO Q4H PRN Ondansetron [Zofran] 4 mg IV Q4H PRN Sodium Chloride 0.9% [Saline Flush] 10 ml FLUSH ASDIRECTED PRN Peripheral IV Insertion Adult [OM.PC] Routine 03/16/19 05:11 Thoracic Spine wo Cont [CT] Routine 03/16/19 08:00 Beta-Carotene(A) w/C & E/Min [Prosight] 1 tab PO DAILY 03/16/19 08:38 Chest 2V [CR] Routine 03/16/19 08:39 Consult to Case Management/Nut And Bolt Assembler [CONS] Routine 03/16/19 09:28 Abdomen Pelvis w Cont [CT] Routine Chest w Cont [CT] Routine 03/16/19 20:00 Sertraline [Zoloft] 150 mg PO BEDTIME tiZANidine [Zanaflex] 4 mg PO BEDTIME 03/17/19 08:15 Brain wo Cont [MR] Routine - Assessment/Plan Admission H&P: Please use this note as an admission H&P Last 24 Hours: My Active Orders 03/15/19 21:27 Head wo Cont [CT] Stat 03/15/19 21:45 Cervical Spine wo Cont [CT] Stat 03/15/19 23:34 Resuscitation Status Routine 03/15/19 23:58 Neuro Check [RC] 0000,0400,0800,1200,1600,2000 Oxygen Therapy [RC] .PRN Up With Assistance [RC] .PRN Vital Signs [RC] 0000,0400,0800,1200,1600,2000 Acetaminophen [Tylenol] 650 mg PO Q4H PRN Lactated Ringers [Ringers, Lactated] 1,000 ml IV ASDIRECTED Ondansetron [Zofran ODT] 4 mg PO Q4H PRN Ondansetron [Zofran] 4 mg IV Q4H PRN Sodium Chloride 0.9% [Saline Flush] 10 ml FLUSH ASDIRECTED PRN Peripheral IV Insertion Adult [OM.PC] Routine 03/16/19 05:11 Thoracic Spine wo Cont [CT] Routine 03/16/19 08:00 Beta-Carotene(A) w/C & E/Min [Prosight] 1 tab PO DAILY 03/16/19 08:38 Chest 2V [CR] Routine 03/16/19 08:39 Consult to Case Management/Nut And Bolt Assembler [CONS] Routine 03/16/19 09:28 Abdomen Pelvis w Cont [CT] Routine Chest w Cont [CT] Routine 03/16/19 20:00 Sertraline [Zoloft] 150 mg PO BEDTIME tiZANidine [Zanaflex] 4 mg PO BEDTIME 03/17/19 08:15 Brain wo Cont [MR] Routine Assessment:: 1. Fall 2. T2, T3 compression fracture 3. Intoxication
[2019-03-15] MEDS ORDERED: Sodium Chloride 0.9% 10 ML Syringe FLUSH PRN (23:58)
[2019-03-15] MEDS ORDERED: Ondansetron 4 MG/2 ML SDV IV PRN (23:58)
[2019-03-15] MEDS ORDERED: Acetaminophen 325 MG Tab PO PRN ×2 (23:58)
[2019-03-16] MEDS: Lactated Ringers 1,000 ML IV SCH ×2 (00:50→16:10)
[2019-03-16] MEDS: Ondansetron 4 MG Tab.DIS PO PRN ×3 (03:25→19:22)
[2019-03-16 07:32] LABS: CHLORIDE,CL 99 mEq/L (98-106); SODIUM,NA 137 mEq/L (136-145)
[2019-03-16] MEDS ORDERED: Beta-Carotene (Vitamin A) w/Vitamin C & E plus Minerals Tab PO SCH (08:00)
[2019-03-16] MEDS ORDERED: cefTRIAXone 1 GM Vial IM ONE (11:10)
[2019-03-16] MEDS ORDERED: Azithromycin 500 MG in Sodium Chloride 0.9% 250 ML IV SCH (11:15)
[2019-03-16] MEDS ORDERED: Barium Sulfate Oral Susp 450 ML Bottle PO ONE (11:25)
[2019-03-16] MEDS ORDERED: Iopamidol 755 Mg/ML 100 ML Bottle IVPUSH ONE (11:25)
[2019-03-16] MEDS ORDERED: cefTRIAXone 1 GM Vial IVPUSH ONE (11:25)
[2019-03-16] MEDS: Clindamycin Phosphate in D5W 300 MG in Premix Bag 1 BAG IV SCH ×6 (12:19→23:55)
[2019-03-16] MEDS: tiZANidine 4 MG Tab**OWN MED PO SCH (19:19)
[2019-03-16] MEDS: Sertraline 100 MG Tab PO SCH (19:19)
--- NOTE | 2019-03-16 20:35 | PCM.PN ---
- General Info Date of Service: 03/16/19 Admission Dx/Problem (Free Text): Thoracic compression fracture Functional Status: Reports: Pain Controlled, Tolerating Diet, Ambulating - Review of Systems General: Reports: Weakness. Denies: Fever, Fatigue, Malaise HEENT: Denies: Headaches Pulmonary: Reports: Shortness of Breath. Denies: Cough Cardiovascular: Denies: Chest Pain, Lightheadedness Gastrointestinal: Reports: Abdominal Pain, Nausea. Denies: Vomiting Genitourinary: Reports: No Symptoms Musculoskeletal: Reports: Leg Pain Skin: Reports: Other (wounds to knees, right elbow) Neurological: Reports: Difficulty Walking, Weakness Psychiatric: Reports: No Symptoms - Patient Data Vitals - Most Recent: Last Vital Signs Temp 98.5 F 03/16/19 20:00 Pulse 103 H 03/16/19 20:00 Resp 20 03/16/19 20:00 BP 133/67 03/16/19 20:00 Pulse Ox 94 L 03/16/19 20:00 Weight - Most Recent: 188 lb 12.8 oz I&O - Last 24 Hours: Intake & Output 03/16/19 03/16/19 03/16/19 06:59 14:59 22:59 Intake Total 1050 Balance 1050 Lab Results Last 24 Hours: Laboratory Results - last 24 hr 03/15/19 03/15/19 03/16/19 Range/Units 22:00 22:00 06:55 WBC 12.1 H 9.3 (5.0-10.0) 10^3/uL RBC 5.07 4.92 (4.50-6.00) 10^6/uL Hgb 15.7 15.2 (14.0-18.0) g/dL Hct 46.2 44.8 (40.0-54.0) % MCV 91.1 91.1 (82.0-94.0) fL MCH 31.0 30.9 (27.0-32.0) pg MCHC 34.0 33.9 (33.0-38.0) g/dL RDW Coeff of Yoel 13.4 13.2 (11.0-15.0) % Plt Count 215 211 (150-400) 10^3/uL Neut % (Auto) 53.4 68.0 (35-85) % Lymph % (Auto) 38.5 23.9 (10-55) % [place] % (Auto) 6.4 7.0 (0-16) % Eos % (Auto) 1.5 0.9 (0-5) % Baso % (Auto) 0.2 0.2 (0-3) % Neut # (Auto) 6.44 6.31 (1.80-7.00) 10^3/uL Lymph # (Auto) 4.64 2.22 (1.00-4.80) 10^3/uL [place] # (Auto) 0.77 0.65 (0.00-0.80) 10^3/uL Eos # (Auto) 0.18 0.08 (0.00-0.45) 10^3/uL Baso # (Auto) 0.02 0.02 10^3/uL Sodium 136 (136-145) mEq/L Potassium 3.9 (3.5-5.0) mEq/L Chloride 98 (98-106) mEq/L Carbon Dioxide 25 (21-32) mmol/L BUN 18 (7-18) mg/dL Creatinine 1.1 (0.7-1.3) mg/dL Est Cr Clr Drug Dosing 45.60 mL/min Estimated GFR (MDRD) > 60 (>=60) mL/min Glucose 122 H (75-99) mg/dL Calcium 8.8 (8.4-10.1) mg/dL Total Bilirubin 0.6 (0.0-1.0) mg/dL AST 18 (15-37) U/L ALT 20 (12-78) U/L Alkaline Phosphatase 102 (46-116) U/L Troponin I < 0.017 (0.00-0.06) ng/mL Total Protein 6.9 (6.4-8.2) g/dL Albumin 3.7 (3.4-5.0) g/dL Amylase (25-115) U/L Lipase (73-393) U/L Ethyl Alcohol 201 H (0-3) mg/dL 03/16/19 03/16/19 Range/Units 06:55 15:01 WBC (5.0-10.0) 10^3/uL RBC (4.50-6.00) 10^6/uL Hgb (14.0-18.0) g/dL Hct (40.0-54.0) % MCV (82.0-94.0) fL MCH (27.0-32.0) pg MCHC (33.0-38.0) g/dL RDW Coeff of Yoel (11.0-15.0) % Plt Count (150-400) 10^3/uL Neut % (Auto) (35-85) % Lymph % (Auto) (10-55) % [place] % (Auto) (0-16) % Eos % (Auto) (0-5) % Baso % (Auto) (0-3) % Neut # (Auto) (1.80-7.00) 10^3/uL Lymph # (Auto) (1.00-4.80) 10^3/uL [place] # (Auto) (0.00-0.80) 10^3/uL Eos # (Auto) (0.00-0.45) 10^3/uL Baso # (Auto) 10^3/uL Sodium 137 (136-145) mEq/L Potassium 4.4 (3.5-5.0) mEq/L Chloride 99 (98-106) mEq/L Carbon Dioxide 27 (21-32) mmol/L BUN 17 (7-18) mg/dL Creatinine 1.0 (0.7-1.3) mg/dL Est Cr Clr Drug Dosing 50.16 mL/min Estimated GFR (MDRD) > 60 (>=60) mL/min Glucose 95 (75-99) mg/dL Calcium 8.3 L (8.4-10.1) mg/dL Total Bilirubin (0.0-1.0) mg/dL AST (15-37) U/L ALT (12-78) U/L Alkaline Phosphatase (46-116) U/L Troponin I (0.00-0.06) ng/mL Total Protein (6.4-8.2) g/dL Albumin (3.4-5.0) g/dL Amylase 60 (25-115) U/L Lipase 63 L (73-393) U/L Ethyl Alcohol (0-3) mg/dL Med Orders - Current: Current Medications Acetaminophen (Tylenol) 650 mg PO Q4H PRN PRN Reason: Pain (Mild 1-3)/fever Last Admin: 03/16/19 16:18 Dose: 650 mg Ceftriaxone Sodium (Rocephin) 1 gm IVPUSH Q24H [facility] Lactated Ringer's (Ringers, Lactated) 1,000 mls @ 75 mls/hr IV ASDIRECTED [facility] Last Admin: 03/16/19 16:10 Dose: 75 mls/hr Clindamycin Phosphate 300 mg/ (Premix) 50 mls @ 100 mls/hr IV Q6H [facility] Last Admin: 03/16/19 17:43 Dose: 100 mls/hr Preservision Eye MultivitaminOwn Med 1 each PO DAILY [facility] Ondansetron HCl (Zofran Odt) 4 mg PO Q4H PRN PRN Reason: nausea, able to take PO Last Admin: 03/16/19 19:22 Dose: 4 mg Ondansetron HCl (Zofran) 4 mg IV Q4H PRN PRN Reason: Nausea/Vomiting Sertraline HCl (Zoloft) 150 mg PO BEDTIME [facility] Last Admin: 03/16/19 19:19 Dose: 150 mg Sodium Chloride (Saline Flush) 10 ml FLUSH ASDIRECTED PRN PRN Reason: Keep Vein Open Tizanidine HCl (Zanaflex) 4 mg PO BEDTIME [facility] Last Admin: 03/16/19 19:19 Dose: 4 mg Discontinued Medications Acetaminophen (Tylenol) 325 mg PO BID PRN PRN Reason: Pain Stop: 03/16/19 00:56 Barium Sulfate (Readi-Cat 2) 900 ml PO ONETIME ONE Stop: 03/16/19 11:26 Last Admin: 03/16/19 11:47 Dose: 900 ml Ceftriaxone Sodium (Rocephin) 1 gm IM ONETIME ONE Stop: 03/16/19 11:11 Last Admin: 03/16/19 11:31 Dose: Not Given Ceftriaxone Sodium (Rocephin) 1 gm IVPUSH ONETIME ONE Stop: 03/16/19 11:26 Last Admin: 03/16/19 11:59 Dose: 1 gm Azithromycin 500 mg/ Sodium (Chloride) 250 mls @ 250 mls/hr IV Q24H [facility] Last Admin: 03/16/19 12:03 Dose: Not Given Iopamidol (Isovue-370 (76%)) 100 ml IVPUSH ONETIME ONE Stop: 03/16/19 11:26 Last Admin: 03/16/19 11:46 Dose: 100 ml Multivitamins/Minerals (Prosight) 1 tab PO DAILY [facility] Last Admin: 03/16/19 08:13 Dose: 1 tab Ondansetron HCl (Zofran Odt) 4 mg PO ONETIME ONE Stop: 03/15/19 22:35 Last Admin: 03/15/19 22:36 Dose: 4 mg - Exam Quality Assessment: Supplemental Oxygen General: Alert, Oriented, Cooperative HEENT: Mucous Membr. Moist/[place] Neck: Supple Lungs: Decreased Breath Sounds Cardiovascular: Regular Rate, Regular Rhythm GI/Abdominal Exam: Normal Bowel Sounds, Soft, Non-Tender Extremities: Normal Inspection, No Pedal Edema Skin: Other (abrasions to bilateral knees; skin tear to right elbow ) Neurological: No New Focal Deficit Sepsis Event Note - Evaluation Sepsis Screening Result: No Definite Risk - Focused Exam Vital Signs: Vital Signs Temp Temp Pulse Resp BP BP Pulse Ox 03/16/19 20:00 98.5 F 103 H 20 133/67 94 L 03/16/19 16:00 99.0 F 110 H 18 143/65 H 90 L 03/16/19 12:00 98.6 F 98 18 151/69 H 99 Date Exam was Performed: 03/16/19 Time Exam was Performed: 20:30 - Problem List & Annotations (1) Fall SNOMED Code(s): 8856652, 887828964 Code(s): W19.XXXA - UNSPECIFIED FALL, INITIAL ENCOUNTER Status: Acute Priority: High Current Visit: Yes Qualifiers: Encounter type: initial encounter Qualified Code(s): W19.XXXA - Unspecified fall, initial encounter (2) Intoxication SNOMED Code(s): 11441543 Code(s): UCF5132 - Status: Acute Priority: High Current Visit: Yes (3) Thoracic compression fracture SNOMED Code(s): 505954084 Code(s): S22.000A - WEDGE COMPRESSION FRACTURE OF UNSP THORACIC VERTEBRA, INIT Status: Acute Priority: High Current Visit: Yes Qualifiers: Encounter type: initial encounter Thoracic vertebra fracture level: T2 Qualified Code(s): S22.020A - Wedge compression fracture of second thoracic vertebra, initial encounter for closed fracture (4) Pneumonia SNOMED Code(s): 786530564 Code(s): J18.9 - PNEUMONIA, UNSPECIFIED ORGANISM Status: Acute Current Visit: Yes Qualifiers: Pneumonia type: aspiration pneumonia Aspiration pneumonia type: due to vomit Laterality: right Lung location: lower lobe of lung Qualified Code(s ): J69.0 - Pneumonitis due to inhalation of food and vomit - Problem List Review Problem List Initiated/Reviewed/Updated: Yes - My Orders Last 24 Hours: My Active Orders 03/15/19 21:27 Head wo Cont [CT] Stat 03/15/19 21:45 Cervical Spine wo Cont [CT] Stat 03/15/19 23:34 Resuscitation Status Routine 03/15/19 23:58 Neuro Check [RC] 0000,0400,0800,1200,1600,2000 Oxygen Therapy [RC] .PRN Up With Assistance [RC] .PRN Vital Signs [RC] 0000,0400,0800,1200,1600,2000 Acetaminophen [Tylenol] 650 mg PO Q4H PRN Lactated Ringers [Ringers, Lactated] 1,000 ml IV ASDIRECTED Ondansetron [Zofran ODT] 4 mg PO Q4H PRN Ondansetron [Zofran] 4 mg IV Q4H PRN Sodium Chloride 0.9% [Saline Flush] 10 ml FLUSH ASDIRECTED PRN Peripheral IV Insertion Adult [OM.PC] Routine 03/16/19 05:11 Thoracic Spine wo Cont [CT] Routine 03/16/19 08:38 Chest 2V [CR] Routine 03/16/19 08:39 Consult to Case Management/Money Manager [CONS] Routine 03/16/19 09:28 Abdomen Pelvis w Cont [CT] Routine Chest w Cont [CT] Routine 03/16/19 09:30 Patient Status [ADT] Routine 03/16/19 12:00 Clindamycin Phosphate in D5W [Cleocin in D5W] 300 mg Premix Bag 1 bag IV Q6H 03/16/19 12:56 Non-Formulary Medication [NF Drug] 1 each PO DAILY 03/16/19 20:00 Sertraline [Zoloft] 150 mg PO BEDTIME tiZANidine [Zanaflex] 4 mg PO BEDTIME 03/17/19 07:30 Thoracic Spine Comp wo Cont [MR] Routine 03/17/19 08:00 cefTRIAXone [Rocephin] 1 gm IVPUSH Q24H 03/17/19 08:15 Brain wo Cont [MR] Routine - Assessment Assessment:: Thoracic Compression fracture Pneumonia Fall - Plan Plan:: Patient denies any pain in neck or upper back. Does complain of leg weakness. Noted to drop sats during the night, oxygen applied. Sats 93% on 2 liters. Appetite good this am but does complain of nausea yet this am. Abdomen sore. Is nontender with palpation. Labs noted stable, normal this am. Chest xray done, abnormal, probable infiltrate to right lobe. No fevers Thoracic CT done this am. CT scan of chest, abdomen and pelvis. Start IV Cleocin and Rocephin. Amylase and Lipase done today, negative. Transferred to acute. Obtain MRI of brain in am.
[2019-03-17] MEDS: Lactated Ringers 1,000 ML IV SCH (06:09)
[2019-03-17] MEDS: Clindamycin Phosphate in D5W 300 MG in Premix Bag 1 BAG IV SCH ×6 (06:13→18:02)
[2019-03-17] MEDS: [UNRECOGNIZED DRUG - OTHER] PO SCH (07:25)
[2019-03-17] MEDS: cefTRIAXone 1 GM Vial IVPUSH SCH (07:25)
[2019-03-17] MEDS: Ondansetron 4 MG Tab.DIS PO PRN (07:32)
--- NOTE | 2019-03-17 14:53 | PCM.PN ---
- General Info Date of Service: 03/17/19 Admission Dx/Problem (Free Text): Thoracic compression fracture Functional Status: Reports: Pain Controlled, Tolerating Diet, Ambulating - Review of Systems General: Reports: Weakness, Fatigue HEENT: Denies: Ear Pain, Sinus Congestion, Sore Throat Pulmonary: Denies: Shortness of Breath, Cough Cardiovascular: Denies: Chest Pain, Edema, Lightheadedness Gastrointestinal: Reports: Abdominal Pain, Nausea. Denies: Vomiting Genitourinary: Reports: No Symptoms Musculoskeletal: Reports: Leg Pain Skin: Reports: No Symptoms Neurological: Reports: Weakness - Patient Data Vitals - Most Recent: Last Vital Signs Temp 98.6 F 03/17/19 11:39 Pulse 80 03/17/19 11:39 Resp 18 03/17/19 11:39 BP 138/71 03/17/19 11:39 Pulse Ox 94 L 03/17/19 11:39 Weight - Most Recent: 188 lb 12.8 oz I&O - Last 24 Hours: Intake & Output 03/16/19 03/17/19 03/17/19 22:59 06:59 14:59 Intake Total 50 1100 Balance 50 1100 Lab Results Last 24 Hours: Laboratory Results - last 24 hr 03/16/19 Range/Units 15:01 Amylase 60 (25-115) U/L Lipase 63 L (73-393) U/L Med Orders - Current: Current Medications Acetaminophen (Tylenol) 650 mg PO Q4H PRN PRN Reason: Pain (Mild 1-3)/fever Last Admin: 03/16/19 16:18 Dose: 650 mg Ceftriaxone Sodium (Rocephin) 1 gm IVPUSH Q24H [facility] Last Admin: 03/17/19 07:25 Dose: 1 gm Lactated Ringer's (Ringers, Lactated) 1,000 mls @ 75 mls/hr IV ASDIRECTED [facility] Last Admin: 03/17/19 06:09 Dose: 75 mls/hr Clindamycin Phosphate 300 mg/ (Premix) 50 mls @ 100 mls/hr IV Q6H [facility] Last Admin: 03/17/19 12:28 Dose: 100 mls/hr Preservision Eye MultivitaminOwn Med 1 each PO DAILY [facility] Last Admin: 03/17/19 07:25 Dose: 1 each Ondansetron HCl (Zofran Odt) 4 mg PO Q4H PRN PRN Reason: nausea, able to take PO Last Admin: 03/17/19 07:32 Dose: 4 mg Ondansetron HCl (Zofran) 4 mg IV Q4H PRN PRN Reason: Nausea/Vomiting Sertraline HCl (Zoloft) 150 mg PO BEDTIME [facility] Last Admin: 03/16/19 19:19 Dose: 150 mg Sodium Chloride (Saline Flush) 10 ml FLUSH ASDIRECTED PRN PRN Reason: Keep Vein Open Tizanidine HCl (Zanaflex) 4 mg PO BEDTIME [facility] Last Admin: 03/16/19 19:19 Dose: 4 mg Discontinued Medications Acetaminophen (Tylenol) 325 mg PO BID PRN PRN Reason: Pain Stop: 03/16/19 00:56 Barium Sulfate (Readi-Cat 2) 900 ml PO ONETIME ONE Stop: 03/16/19 11:26 Last Admin: 03/16/19 11:47 Dose: 900 ml Ceftriaxone Sodium (Rocephin) 1 gm IM ONETIME ONE Stop: 03/16/19 11:11 Last Admin: 03/16/19 11:31 Dose: Not Given Ceftriaxone Sodium (Rocephin) 1 gm IVPUSH ONETIME ONE Stop: 03/16/19 11:26 Last Admin: 03/16/19 11:59 Dose: 1 gm Azithromycin 500 mg/ Sodium (Chloride) 250 mls @ 250 mls/hr IV Q24H [facility] Last Admin: 03/16/19 12:03 Dose: Not Given Iopamidol (Isovue-370 (76%)) 100 ml IVPUSH ONETIME ONE Stop: 03/16/19 11:26 Last Admin: 03/16/19 11:46 Dose: 100 ml Multivitamins/Minerals (Prosight) 1 tab PO DAILY [facility] Last Admin: 03/16/19 08:13 Dose: 1 tab Ondansetron HCl (Zofran Odt) 4 mg PO ONETIME ONE Stop: 03/15/19 22:35 Last Admin: 03/15/19 22:36 Dose: 4 mg - Exam Quality Assessment: Supplemental Oxygen General: Alert, Oriented HEENT: Mucous Membr. Moist/[place] Neck: Supple Lungs: Decreased Breath Sounds Cardiovascular: Regular Rate, Regular Rhythm GI/Abdominal Exam: Normal Bowel Sounds, Soft, Non-Tender Back Exam: No: Paraspinal Tenderness, Vertebral Tenderness Extremities: Normal Inspection, No Pedal Edema Skin: Warm, Dry Neurological: No New Focal Deficit Sepsis Event Note - Evaluation Sepsis Screening Result: No Definite Risk - Focused Exam Vital Signs: Vital Signs Temp Pulse Resp BP BP Pulse Ox 03/17/19 11:39 98.6 F 80 18 138/71 94 L 03/17/19 07:51 98.4 F 81 18 134/60 96 03/17/19 04:00 97.4 F 76 20 131/76 98 Date Exam was Performed: 03/17/19 Time Exam was Performed: 14:43 - Problem List & Annotations (1) Fall SNOMED Code(s): 3093910, 676693464 Code(s): W19.XXXA - UNSPECIFIED FALL, INITIAL ENCOUNTER Status: Acute Priority: High Current Visit: Yes Qualifiers: Encounter type: initial encounter Qualified Code(s): W19.XXXA - Unspecified fall, initial encounter (2) Intoxication SNOMED Code(s): 53928265 Code(s): WLC6811 - Status: Acute Priority: High Current Visit: Yes (3) Thoracic compression fracture SNOMED Code(s): 831504216 Code(s): S22.000A - WEDGE COMPRESSION FRACTURE OF UNSP THORACIC VERTEBRA, INIT Status: Acute Priority: High Current Visit: Yes Qualifiers: Encounter type: initial encounter Thoracic vertebra fracture level: T2 Qualified Code(s): S22.020A - Wedge compression fracture of second thoracic vertebra, initial encounter for closed fracture (4) Pneumonia SNOMED Code(s): 597527652 Code(s): J18.9 - PNEUMONIA, UNSPECIFIED ORGANISM Status: Acute Current Visit: Yes Qualifiers: Pneumonia type: aspiration pneumonia Aspiration pneumonia type: due to vomit Laterality: right Lung location: lower lobe of lung Qualified Code(s ): J69.0 - Pneumonitis due to inhalation of food and vomit - Problem List Review Problem List Initiated/Reviewed/Updated: Yes - My Orders Last 24 Hours: My Active Orders 03/16/19 20:00 Sertraline [Zoloft] 150 mg PO BEDTIME tiZANidine [Zanaflex] 4 mg PO BEDTIME 03/17/19 07:30 Thoracic Spine Comp wo Cont [MR] Routine 03/17/19 08:00 cefTRIAXone [Rocephin] 1 gm IVPUSH Q24H 03/17/19 08:15 Brain wo Cont [MR] Routine 03/17/19 08:59 Consult to Physical Therapy [PT Evaluation and Treatment] [CONS] Routine - Assessment Assessment:: Thoracic Compression fracture Pneumonia Fall - Plan Plan:: Patient denies any pain in neck or upper back. Does complain of leg weakness. Noted to drop sats during the night, oxygen applied. Sats 93% on 2 liters. Appetite good this am but does complain of nausea yet this am. Abdomen sore. Is nontender with palpation. Labs noted stable, normal this am. Chest xray done, abnormal, probable infiltrate to right lobe. No fevers Thoracic CT done this am. CT scan of chest, abdomen and pelvis. Start IV Cleocin and Rocephin. Amylase and Lipase done today, negative. Transferred to acute. Obtain MRI of brain in am. 03-17-2019 Patient down for MRI of thoracic spine and brain this am, awaiting results. Denies chest pain or shortness of breath but sats noted to drop to 77% just being up to the bathroom. 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 Abdomen/pelvis CT normal. Was started on IV Cleocin or Rocephin due to concern of aspiration as had vomiting while lying flat with CT scan on. Denies any upper thoracic pain despite noting thoracic compression fractures. Still states legs are aching and weak. Await further MRI reports. Continue current meds. Start PT.
[2019-03-17] MEDS: tiZANidine 4 MG Tab**OWN MED PO SCH (19:13)
[2019-03-17] MEDS: Sertraline 100 MG Tab PO SCH (19:13)
[2019-03-18] MEDS: Clindamycin Phosphate in D5W 300 MG in Premix Bag 1 BAG IV SCH ×10 (00:18→23:33)
[2019-03-18] MEDS: Lactated Ringers 1,000 ML IV SCH (01:28)
[2019-03-18 07:40] LABS: CHLORIDE,CL 105 mEq/L (98-106); SODIUM,NA 142 mEq/L (136-145)
[2019-03-18] MEDS: cefTRIAXone 1 GM Vial IVPUSH SCH (07:57)
[2019-03-18] MEDS: [UNRECOGNIZED DRUG - OTHER] PO SCH (07:57)
--- NOTE | 2019-03-18 14:06 | PCM.PN ---
- General Info Date of Service: 03/18/19 Admission Dx/Problem (Free Text): Thoracic compression fracture Functional Status: Reports: Pain Controlled - Review of Systems General: Reports: No Symptoms. Denies: Fever, Weakness HEENT: Reports: No Symptoms Pulmonary: Reports: No Symptoms. Denies: Shortness of Breath Cardiovascular: Reports: No Symptoms. Denies: Chest Pain, Palpitations Gastrointestinal: Reports: No Symptoms. Denies: Abdominal Pain, Constipation, Diarrhea Genitourinary: Reports: No Symptoms Musculoskeletal: Reports: No Symptoms. Denies: Neck Pain, Back Pain Skin: Reports: No Symptoms Neurological: Reports: No Symptoms Psychiatric: Reports: No Symptoms - Patient Data Vitals - Most Recent: Last Vital Signs Temp 36.7 C 03/18/19 12:00 Pulse 72 03/18/19 12:00 Resp 20 03/18/19 12:00 BP 140/67 03/18/19 12:00 Pulse Ox 98 03/18/19 12:00 Weight - Most Recent: 85.638 kg I&O - Last 24 Hours: Intake & Output 03/17/19 03/18/19 03/18/19 22:59 06:59 14:59 Intake Total 1050 100 Balance 1050 100 Lab Results Last 24 Hours: Laboratory Results - last 24 hr 03/18/19 03/18/19 Range/Units 07:00 07:00 WBC 7.9 (5.0-10.0) 10^3/uL RBC 4.35 L (4.50-6.00) 10^6/uL Hgb 13.4 L (14.0-18.0) g/dL Hct 41.1 (40.0-54.0) % MCV 94.5 H (82.0-94.0) fL MCH 30.8 (27.0-32.0) pg MCHC 32.6 L (33.0-38.0) g/dL RDW Coeff of Yoel 13.3 (11.0-15.0) % Plt Count 173 (150-400) 10^3/uL Neut % (Auto) 53.7 (35-85) % Lymph % (Auto) 31.1 (10-55) % [place] % (Auto) 11.0 (0-16) % Eos % (Auto) 3.7 (0-5) % Baso % (Auto) 0.5 (0-3) % Neut # (Auto) 4.23 (1.80-7.00) 10^3/uL Lymph # (Auto) 2.45 (1.00-4.80) 10^3/uL [place] # (Auto) 0.87 H (0.00-0.80) 10^3/uL Eos # (Auto) 0.29 (0.00-0.45) 10^3/uL Baso # (Auto) 0.04 10^3/uL Sodium 142 (136-145) mEq/L Potassium 4.6 (3.5-5.0) mEq/L Chloride 105 (98-106) mEq/L Carbon Dioxide 32 (21-32) mmol/L BUN 18 (7-18) mg/dL Creatinine 1.1 (0.7-1.3) mg/dL Est Cr Clr Drug Dosing 45.60 mL/min Estimated GFR (MDRD) > 60 (>=60) mL/min Glucose 103 H (75-99) mg/dL Calcium 8.0 L (8.4-10.1) mg/dL C-Reactive Protein 0.2 (0.2-0.8) mg/dL Med Orders - Current: Current Medications Acetaminophen (Tylenol) 650 mg PO Q4H PRN PRN Reason: Pain (Mild 1-3)/fever Last Admin: 03/16/19 16:18 Dose: 650 mg Ceftriaxone Sodium (Rocephin) 1 gm IVPUSH Q24H [facility] Last Admin: 03/18/19 07:57 Dose: 1 gm Clindamycin Phosphate 300 mg/ (Premix) 50 mls @ 100 mls/hr IV Q6H [facility] Last Admin: 03/18/19 11:49 Dose: 100 mls/hr Preservision Eye MultivitaminOwn Med 1 each PO DAILY [facility] Last Admin: 03/18/19 07:57 Dose: 1 each Ondansetron HCl (Zofran Odt) 4 mg PO Q4H PRN PRN Reason: nausea, able to take PO Last Admin: 03/17/19 07:32 Dose: 4 mg Ondansetron HCl (Zofran) 4 mg IV Q4H PRN PRN Reason: Nausea/Vomiting Sertraline HCl (Zoloft) 150 mg PO BEDTIME [facility] Last Admin: 03/17/19 19:13 Dose: 150 mg Sodium Chloride (Saline Flush) 10 ml FLUSH ASDIRECTED PRN PRN Reason: Keep Vein Open Tizanidine HCl (Zanaflex) 4 mg PO BEDTIME [facility] Last Admin: 03/17/19 19:13 Dose: 4 mg Discontinued Medications Acetaminophen (Tylenol) 325 mg PO BID PRN PRN Reason: Pain Stop: 03/16/19 00:56 Barium Sulfate (Readi-Cat 2) 900 ml PO ONETIME ONE Stop: 03/16/19 11:26 Last Admin: 03/16/19 11:47 Dose: 900 ml Ceftriaxone Sodium (Rocephin) 1 gm IM ONETIME ONE Stop: 03/16/19 11:11 Last Admin: 03/16/19 11:31 Dose: Not Given Ceftriaxone Sodium (Rocephin) 1 gm IVPUSH ONETIME ONE Stop: 03/16/19 11:26 Last Admin: 03/16/19 11:59 Dose: 1 gm Lactated Ringer's (Ringers, Lactated) 1,000 mls @ 75 mls/hr IV ASDIRECTED [facility] Last Admin: 03/18/19 01:28 Dose: 75 mls/hr Azithromycin 500 mg/ Sodium (Chloride) 250 mls @ 250 mls/hr IV Q24H [facility] Last Admin: 03/16/19 12:03 Dose: Not Given Iopamidol (Isovue-370 (76%)) 100 ml IVPUSH ONETIME ONE Stop: 03/16/19 11:26 Last Admin: 03/16/19 11:46 Dose: 100 ml Multivitamins/Minerals (Prosight) 1 tab PO DAILY [facility] Last Admin: 03/16/19 08:13 Dose: 1 tab Ondansetron HCl (Zofran Odt) 4 mg PO ONETIME ONE Stop: 03/15/19 22:35 Last Admin: 03/15/19 22:36 Dose: 4 mg - Exam Quality Assessment: Supplemental Oxygen (2L nc) General: Alert, Oriented HEENT: Pupils Equal Neck: Supple, Trachea Midline Lungs: Clear to Auscultation, Normal Respiratory Effort Cardiovascular: Regular Rate, Regular Rhythm GI/Abdominal Exam: Soft, Non-Tender Back Exam: Normal Inspection, Full Range of Motion Extremities: Normal Inspection, Normal Range of Motion, Non-Tender, No Pedal Edema, Normal Capillary Refill Peripheral Pulses: 0: Femoral (L), 2+: Radial (L), Radial (R), Posterior Tibial (L), Posterior Tibial (R) Skin: Warm, Dry, Intact Neurological: No New Focal Deficit Psy/Mental Status: Alert, Normal Affect, Normal Mood Sepsis Event Note - Evaluation Sepsis Screening Result: No Definite Risk - Focused Exam Vital Signs: Vital Signs Temp Pulse Resp BP Pulse Ox 03/18/19 12:00 36.7 C 72 20 140/67 98 03/18/19 07:58 36.4 C 70 20 131/71 99 03/18/19 04:00 36.4 C 100 18 135/65 95 Date Exam was Performed: 03/18/19 Time Exam was Performed: 13:59 - Problem List & Annotations (1) Pneumonia SNOMED Code(s): 052218416 Code(s): J18.9 - PNEUMONIA, UNSPECIFIED ORGANISM Status: Acute Priority: High Current Visit: Yes Qualifiers: Pneumonia type: aspiration pneumonia Aspiration pneumonia type: due to vomit Laterality: right Lung location: lower lobe of lung Qualified Code(s ): J69.0 - Pneumonitis due to inhalation of food and vomit (2) Thoracic compression fracture SNOMED Code(s): 879312834 Code(s): S22.000A - WEDGE COMPRESSION FRACTURE OF UNSP THORACIC VERTEBRA, INIT Status: Acute Priority: High Current Visit: Yes Qualifiers: Encounter type: initial encounter Thoracic vertebra fracture level: T2 Qualified Code(s): S22.020A - Wedge compression fracture of second thoracic vertebra, initial encounter for closed fracture - Problem List Review Problem List Initiated/Reviewed/Updated: Yes - Assessment Assessment:: Thoracic Compression fracture Pneumonia Fall - Plan Plan:: Patient denies any pain in neck or upper back. Does complain of leg weakness. Noted to drop sats during the night, oxygen applied. Sats 93% on 2 liters. Appetite good this am but does complain of nausea yet this am. Abdomen sore. Is nontender with palpation. Labs noted stable, normal this am. Chest xray done, abnormal, probable infiltrate to right lobe. No fevers Thoracic CT done this am. CT scan of chest, abdomen and pelvis. Start IV Cleocin and Rocephin. Amylase and Lipase done today, negative. Transferred to [facility]. Obtain MRI of brain in am. 03-17-2019 Patient down for MRI of thoracic spine and brain this am, awaiting results. Denies chest pain or shortness of breath but sats noted to drop to 77% just being up to the bathroom. 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 Abdomen/pelvis CT normal. Was started on IV Cleocin or Rocephin due to concern of aspiration as had vomiting while lying flat with CT scan on. Denies any upper thoracic pain despite noting thoracic compression fractures. Still states legs are aching and weak. Await further MRI reports. Continue current meds. Start PT. 03/18/2019 1400 pt denies back or neck pain, no numbness or tingling, denies sob, however,his saturation does drop when not on O2, will continue current IV antibx, will DC IVF as he is drinking normally, will DC neuro checks, will reassess daily and make changes as need andplan DC to [facility] this week as long as he progresses well.
[2019-03-18] MEDS: tiZANidine 4 MG Tab**OWN MED PO SCH (19:42)
[2019-03-18] MEDS: Sertraline 100 MG Tab PO SCH (19:43)
[2019-03-19] MEDS: Clindamycin Phosphate in D5W 300 MG in Premix Bag 1 BAG IV SCH ×2 (05:56)
[2019-03-19] MEDS: cefTRIAXone 1 GM Vial IVPUSH SCH (08:06)
[2019-03-19] MEDS: [UNRECOGNIZED DRUG - OTHER] PO SCH (08:07)
[2019-03-19 08:28] VITALS: BP 138/72; PULSE 69
== END 2019-03-19 08:47 | disposition swing bed (61) | DRG 551 ==
LOC: CC.ED 21:16 → CC.MS 23:34 → UNDOADMOB 23:38 → OBSVTOIN 03-16 09:30
PROVIDERS: ADMIT Physician Assistant Medical; ATTEND Family Medicine
DX: S22.020A Wedge compression fracture of second thoracic vertebra, initial encounter for closed fracture (principal); J69.0 Pneumonitis due to inhalation of food and vomit; K59.09 Other constipation; G89.29 Other chronic pain; M54.9 Dorsalgia, unspecified; M79.606 Pain in leg, unspecified; R40.2412 Glasgow coma scale score 13-15, at arrival to emergency department; F41.9 Anxiety disorder, unspecified; F32.9 Major depressive disorder, single episode, unspecified; F10.129 Alcohol abuse with intoxication, unspecified; Y90.9 Presence of alcohol in blood, level not specified; Y90.7 Blood alcohol level of 200-239 mg/100 ml; W19.XXXA Unspecified fall, initial encounter; Z79.899 Other long term (current) drug therapy; Y92.009 Unspecified place in unspecified non-institutional (private) residence as the place of occurrence of the external cause
CPT/HCPCS: 36415; 70450; 70551; 71046; 71260; 72125; 72128; 72146; 74177; 80048; 80053; 82150; 83690; 84484; 85025; 86140; 96361; 96374; 97161-GP; 99285-25; A9270-GY; G0378; G0480; J0696; J3490; J7120; Q9967

== ENCOUNTER 2019-03-19 08:49 | Inpatient (IN) | payer MEDICARE, MEDICAID ==
[2019-03-19] MEDS ORDERED: Sodium Chloride 0.9% 10 ML Syringe FLUSH PRN (10:27)
[2019-03-19] MEDS ORDERED: Acetaminophen 325 MG Tab PO PRN (10:34)
--- NOTE | 2019-03-19 10:49 | PCM.HP.2 ---
H&P History of Present Illness - General Date of Service: 03/19/19 Admit Problem/Dx: Admission Diagnosis/Problem Admission Diagnosis/Problem Impaired gait and mobility Source of Information: Patient History Limitations: Reports: No Limitations - History of Present Illness Initial Comments - Free Text/Narative: pt is being admitted to a swing bed from [facility] for physical therapy, IV antibx, and oxygen therapy for continued treatment of pneumonia. Duration of Symptoms: Reports: Day(s): Quality: Denies: Ache Severity: Mild Improves with: Reports: None Worsens with: Reports: None Associated Symptoms: Reports: No Other Symptoms, Cough, Weakness. Denies: Chest Pain, Nausea/Vomiting, Shortness of Breath - Related Data Allergies/Adverse Reactions: Allergies Allergy/AdvReac Type Severity Reaction Status Date / Time No Known Allergies Allergy Verified 03/15/19 22:08 Home Medications: Home Meds Acetaminophen [Tylenol] 325 mg PO BID PRN 03/15/19 [History] Sertraline HCl 150 mg PO BEDTIME 03/15/19 [History] Vit A/C/E AC/Znox/Cupric Oxide [Eye Vitamin-Minerals Tablet] 1 each PO DAILY [History] tiZANidine HCl [Tizanidine HCl] 4 mg PO BEDTIME 03/15/19 [History] Past Medical History - Past Health History Medical/Surgical History: Denies Medical/Surgical History HEENT History: Reports: None Cardiovascular History: Reports: None Respiratory History: Reports: None Gastrointestinal History: Reports: Chronic Constipation Genitourinary History: Reports: None Musculoskeletal History: Reports: Back Pain, Chronic, Other (See Below) Other Musculoskeletal History: chronic leg pain. Psychiatric History: Reports: Anxiety, Depression Social & Family History - Family History Family Medical History: Noncontributory - Caffeine Use Caffeine Use: Reports: Coffee H&P Review of Systems - Review of Systems: Review Of Systems: See Below General: Reports: No Symptoms. Denies: Fever, Chills HEENT: Reports: No Symptoms Pulmonary: Reports: Cough. Denies: Shortness of Breath, Wheezing Cardiovascular: Reports: No Symptoms. Denies: Chest Pain Gastrointestinal: Reports: No Symptoms. Denies: Abdominal Pain, Nausea, Vomiting Musculoskeletal: Reports: No Symptoms. Denies: Neck Pain, Back Pain Skin: Reports: No Symptoms Psychiatric: Reports: No Symptoms Neurological: Reports: No Symptoms. Denies: Headache Exam - Exam Exam: See Below - Exam Quality Assessment: Supplemental Oxygen (@L nc) General: Alert, Oriented, Cooperative HEENT: Conjunctiva Clear Neck: Supple, Trachea Midline Lungs: Clear to Auscultation, Normal Respiratory Effort Cardiovascular: Regular Rate, Regular Rhythm GI/Abdominal Exam: Normal Bowel Sounds, Soft, Non-Tender Back Exam: Normal Inspection, Full Range of Motion Extremities: Normal Inspection, Normal Range of Motion, Non-Tender, Normal Capillary Refill Peripheral Pulses: 2+: Radial (L), Radial (R) Skin: Warm, Dry, Intact Neuro Extensive - Mental Status: Alert, Normal Mood/Affect, Normal Cognition Neuro Extensive - Motor, Sensory, Reflexes: No: Normal Gait Psychiatric: Alert, Normal Affect, Normal Mood - Problem List (1) Fall SNOMED Code(s): 8912205, 441811361 ICD Code: W19.XXXA - UNSPECIFIED FALL, INITIAL ENCOUNTER Status: Acute Priority: High Current Visit: No Qualifiers: Encounter type: initial encounter Qualified Code(s): W19.XXXA - Unspecified fall, initial encounter (2) Pneumonia SNOMED Code(s): 027586959 ICD Code: J18.9 - PNEUMONIA, UNSPECIFIED ORGANISM Status: Acute Priority : High Current Visit: No Qualifiers: Pneumonia type: due to unspecified organism (3) Thoracic compression fracture SNOMED Code(s): 889103969 ICD Code: S22.000A - WEDGE COMPRESSION FRACTURE OF UNSP THORACIC VERTEBRA, INIT Status: Acute Priority: High Current Visit: No Qualifiers: Problem List Initiated/Reviewed/Updated: Yes Orders Last 24hrs: Active Orders 24 hr Category Date Time Status Patient Status [ADT] Routine ADT 03/19/19 10:27 Active Height and Weight [RC] UPON Care 03/19/19 10:27 Active Intake and Output [RC] ASDIRECTED Care 03/19/19 10:27 Active Oxygen Therapy [RC] PRN Care 03/19/19 10:27 Active Up With Assistance [RC] ASDIRECTED Care 03/19/19 10:27 Active VTE/DVT Education [RC] PER UNIT ROUTINE Care 03/19/19 10:27 Active Vital Signs [RC] PER UNIT ROUTINE Care 03/19/19 10:27 Active PT Evaluation and Treatment [CONS] Routine Cons 03/19/19 10:27 Active Respiratory Care Assess and Treatment [CONS] Routine Cons 03/19/19 10:27 Active 2 Gram Sodium Diet [DIET] Diet 03/19/19 Lunch Active Acetaminophen [Tylenol] Med 03/19/19 10:34 Ordered 325 mg PO BID PRN Beta-Carotene(A) w/C & E/Min [Prosight] Med 03/19/19 10:45 Ordered 1 tab PO DAILY Clindamycin Phosphate in D5W [Cleocin in D5W] 300 mg Med 03/19/19 12:00 Active Premix Bag 1 bag IV Q6H Sertraline [Zoloft] Med 03/19/19 20:00 Ordered 150 mg PO BEDTIME Sodium Chloride 0.9% [Saline Flush] Med 03/19/19 10:27 Active 10 ml FLUSH ASDIRECTED PRN cefTRIAXone [Rocephin] Med 03/20/19 08:00 Active 1 gm IVPUSH Q24H tiZANidine HCl [Tizanidine HCl] Med 03/19/19 20:00 Ordered 4 mg PO BEDTIME Saline Lock Insert [OM.PC] Routine Oth 03/19/19 10:27 Ordered Resuscitation Status Routine Resus Stat 03/19/19 10:27 Ordered Medication Orders Acetaminophen (Tylenol) 325 mg PO BID PRN PRN Reason: Pain Ceftriaxone Sodium (Rocephin) 1 gm IVPUSH Q24H [facility] Clindamycin Phosphate 300 mg/ (Premix) 50 mls @ 100 mls/hr IV Q6H [facility] Multivitamins/Minerals (Prosight) 1 tab PO DAILY [facility] Non-Formulary Medication (Tizanidine Hcl [Tizanidine Hcl]) 4 mg PO BEDTIME [facility] Sertraline HCl (Zoloft) 150 mg PO BEDTIME [facility] Sodium Chloride (Saline Flush) 10 ml FLUSH ASDIRECTED PRN PRN Reason: Keep Vein Open Assessment/Plan Comment:: will continue current treatment plan from acute hospital visit, will continue oxygen at 2L NC, IV antibx and will resume physically therapy, will plan to dc to a [facility] this week. - Mortality Measure Prognosis:: Good
[2019-03-19] MEDS: Clindamycin Phosphate in D5W 300 MG in Premix Bag 1 BAG IV SCH ×4 (11:30→18:14)
[2019-03-19] MEDS: Beta-Carotene (Vitamin A) w/Vitamin C & E plus Minerals Tab PO SCH (11:30)
[2019-03-19] MEDS: tiZANidine 4 MG Tab PO SCH (19:38)
[2019-03-19] MEDS: Sertraline 100 MG Tab PO SCH (19:38)
[2019-03-20] MEDS: Clindamycin Phosphate in D5W 300 MG in Premix Bag 1 BAG IV SCH ×8 (00:09→17:45)
[2019-03-20] MEDS: Beta-Carotene (Vitamin A) w/Vitamin C & E plus Minerals Tab PO SCH (08:13)
[2019-03-20] MEDS: cefTRIAXone 1 GM Vial IVPUSH SCH (08:13)
[2019-03-20] MEDS: Sertraline 100 MG Tab PO SCH (19:53)
[2019-03-20] MEDS: tiZANidine 4 MG Tab PO SCH (19:53)
[2019-03-21] MEDS: Clindamycin Phosphate in D5W 300 MG in Premix Bag 1 BAG IV SCH ×10 (00:17→23:24)
[2019-03-21] MEDS: cefTRIAXone 1 GM Vial IVPUSH SCH (07:55)
[2019-03-21] MEDS: Beta-Carotene (Vitamin A) w/Vitamin C & E plus Minerals Tab PO SCH (07:56)
[2019-03-21] MEDS: Sertraline 100 MG Tab PO SCH (21:41)
[2019-03-21] MEDS: tiZANidine 4 MG Tab PO SCH (21:42)
[2019-03-22] MEDS: Clindamycin Phosphate in D5W 300 MG in Premix Bag 1 BAG IV SCH ×8 (05:11→23:15)
[2019-03-22] MEDS: cefTRIAXone 1 GM Vial IVPUSH SCH (08:15)
[2019-03-22] MEDS: Beta-Carotene (Vitamin A) w/Vitamin C & E plus Minerals Tab PO SCH (08:16)
[2019-03-22] MEDS: Sertraline 100 MG Tab PO SCH (19:38)
[2019-03-22] MEDS: tiZANidine 4 MG Tab PO SCH (19:38)
[2019-03-23] MEDS: Clindamycin Phosphate in D5W 300 MG in Premix Bag 1 BAG IV SCH ×8 (06:07→23:44)
[2019-03-23] MEDS: Beta-Carotene (Vitamin A) w/Vitamin C & E plus Minerals Tab PO SCH (07:24)
[2019-03-23] MEDS: cefTRIAXone 1 GM Vial IVPUSH SCH (07:24)
[2019-03-23] MEDS: tiZANidine 4 MG Tab PO SCH (19:31)
[2019-03-23] MEDS: Sertraline 100 MG Tab PO SCH (19:31)
[2019-03-24] MEDS: Clindamycin Phosphate in D5W 300 MG in Premix Bag 1 BAG IV SCH ×8 (06:05→23:54)
[2019-03-24] MEDS: cefTRIAXone 1 GM Vial IVPUSH SCH (07:33)
[2019-03-24] MEDS: Beta-Carotene (Vitamin A) w/Vitamin C & E plus Minerals Tab PO SCH (07:34)
[2019-03-24] MEDS: tiZANidine 4 MG Tab PO SCH (19:25)
[2019-03-24] MEDS: Sertraline 100 MG Tab PO SCH (19:26)
[2019-03-25] MEDS: Clindamycin Phosphate in D5W 300 MG in Premix Bag 1 BAG IV SCH ×4 (06:31→13:19)
[2019-03-25] MEDS: Beta-Carotene (Vitamin A) w/Vitamin C & E plus Minerals Tab PO SCH (07:31)
[2019-03-25] MEDS: cefTRIAXone 1 GM Vial IVPUSH SCH (07:31)
[2019-03-25 16:15] LABS: CHLORIDE,CL 105 mEq/L (98-106); SODIUM,NA 139 mEq/L (136-145)
[2019-03-25] MEDS: Enoxaparin 40 MG/0.4 ML Syringe SUBCUT SCH ×2 (17:55→19:04)
[2019-03-25] MEDS: Sertraline 100 MG Tab PO SCH (19:29)
[2019-03-25] MEDS: tiZANidine 4 MG Tab PO SCH (19:29)
[2019-03-26] MEDS: Beta-Carotene (Vitamin A) w/Vitamin C & E plus Minerals Tab PO SCH (07:44)
[2019-03-26] MEDS: tiZANidine 4 MG Tab PO SCH (19:43)
[2019-03-26] MEDS: Sertraline 100 MG Tab PO SCH (19:44)
[2019-03-26] MEDS: Enoxaparin 40 MG/0.4 ML Syringe SUBCUT SCH (19:46)
[2019-03-27] MEDS: Beta-Carotene (Vitamin A) w/Vitamin C & E plus Minerals Tab PO SCH (07:33)
--- NOTE | 2019-03-27 10:00 | PCM.DCSUM1 ---
Discharge Summary - Hospital Course Diagnosis: Stroke: No Modified Denali Scale: No Symptoms at All Modified Denali Scale Score: 0 - Discharge Data Discharge Disposition: DC/Tfer W/I Hosp To Swing 61 Condition: Good - Referral to Home Health Primary Care Physician: David De La Torre MD - Discharge Diagnosis/Problem(s) (1) Fall SNOMED Code(s): 1247666, 369568133 ICD Code: W19.XXXA - UNSPECIFIED FALL, INITIAL ENCOUNTER Status: Acute Priority: High Current Visit: No Qualifiers: Encounter type: initial encounter Qualified Code(s): W19.XXXA - Unspecified fall, initial encounter (2) Pneumonia SNOMED Code(s): 900795398 ICD Code: J18.9 - PNEUMONIA, UNSPECIFIED ORGANISM Status: Acute Priority : High Current Visit: No Qualifiers: Pneumonia type: due to unspecified organism (3) Thoracic compression fracture SNOMED Code(s): 787694553 ICD Code: S22.000A - WEDGE COMPRESSION FRACTURE OF UNSP THORACIC VERTEBRA, INIT Status: Acute Priority: High Current Visit: No Qualifiers: - Patient Summary/Data Consults: Consultations 03/19/19 10:27 PT Evaluation and Treatment [CONS] Routine Respiratory Care Assess and Treatment [CONS] Routine - Discharge Plan Home Medications: Home Meds Acetaminophen [Tylenol] 325 mg PO BID PRN 03/15/19 [History] Sertraline HCl 150 mg PO BEDTIME 03/15/19 [History] Vit A/C/E AC/Znox/Cupric Oxide [Eye Vitamin-Minerals Tablet] 1 each PO DAILY [History] tiZANidine HCl [Tizanidine HCl] 4 mg PO BEDTIME 03/15/19 [History] - Patient Data Vitals - Most Recent: Last Vital Signs Temp 36.5 C 03/27/19 07:32 Pulse 75 03/27/19 07:32 Resp 18 03/27/19 07:32 BP 124/46 L 03/27/19 07:32 Pulse Ox 97 03/27/19 07:32 Weight - Most Recent: 86.364 kg Med Orders - Current: Current Medications Acetaminophen (Tylenol) 325 mg PO BID PRN PRN Reason: Pain Enoxaparin Sodium (Lovenox) 40 mg SUBCUT DAILY@1999 [facility] Last Admin: 03/26/19 19:46 Dose: 40 mg Multivitamins/Minerals (Prosight) 1 tab PO DAILY [facility] Last Admin: 03/27/19 07:33 Dose: 1 tab Sertraline HCl (Zoloft) 150 mg PO BEDTIME [facility] Last Admin: 03/26/19 19:44 Dose: 150 mg Sodium Chloride (Saline Flush) 10 ml FLUSH ASDIRECTED PRN PRN Reason: Keep Vein Open Tizanidine HCl (Zanaflex) 4 mg PO BEDTIME [facility] Last Admin: 03/26/19 19:43 Dose: 4 mg Discontinued Medications Ceftriaxone Sodium (Rocephin) 1 gm IVPUSH Q24H [facility] Last Admin: 03/25/19 07:31 Dose: 1 gm Clindamycin Phosphate 300 mg/ (Premix) 50 mls @ 100 mls/hr IV Q6H [facility] Last Admin: 03/25/19 13:19 Dose: Not Given
[2019-03-27] MEDS: Enoxaparin 40 MG/0.4 ML Syringe SUBCUT SCH (20:04)
[2019-03-27] MEDS: Sertraline 100 MG Tab PO SCH (20:06)
[2019-03-27] MEDS: tiZANidine 4 MG Tab PO SCH (20:06)
[2019-03-28] MEDS: Beta-Carotene (Vitamin A) w/Vitamin C & E plus Minerals Tab PO SCH (07:31)
[2019-03-28 08:18] VITALS: BP 118/64; PULSE 68
--- NOTE | 2019-03-28 09:17 | PCM.DCSUM1 ---
Discharge Summary - Hospital Course Free Text/Narrative:: Patient initially presented to ER after a fall outside his home. Had been up at the local establishment, had several alcoholic beverages and drove home. Unsure why fell, thought "his legs gave out". Did have to crawl in to the apartment building and another resident called 911. On presentation, patient intoxicated. Blood alcohol 200. Unsure if LOC. CT scan of head and neck were done, did note thoracic compression fractures. Admitted for IV fluids, further neurological monitoring. Chest xray done in am as sats were dropping in to the 80s during the night. Noted to have possible aspiration pneumonia. STarted on IV Rocephin and Cleocin. Ultimately a CT scan of his chest was done which showed interstitial lung disease with superimposed infection. MRI of thoracic spine was done, T1-T3 compression fractures noted with 20-30% wedge noted. Not experiencing any pain with these fractures. Transferred to swing bed for ongoing PT, IV antibiotics, social service consult for placement due to falls/ home safety. Diagnosis: Stroke: No Modified Ori Scale: No Symptoms at All Modified Reynolds Scale Score: 0 - Discharge Data Discharge Date: 03/28/19 Discharge Disposition: DC/Tfer to SNF 03 Condition: Fair - Referral to Home Health Primary Care Physician: David De La Torre MD - Patient Summary/Data Complications: none Consults: Consultations 03/19/19 10:27 PT Evaluation and Treatment [CONS] Routine Respiratory Care Assess and Treatment [CONS] Routine Hospital Course: Patient is doing well. Denies any pain in his upper back. Admits to chronic low back discomfort, leg weakness, unchanged. Lung sounds improved. Able to be off oxygen while at rest, still does drop in to the 80s with exertion and requires oxygen. Less cough. Abrasions to arms healing. Screening done for senior living, accepted. Transfer to [facility] for ongoing physical and occupational therapy. - Patient Instructions Diet: Usual Diet as Tolerated Activity: As Tolerated - Discharge Plan *PRESCRIPTION DRUG MONITORING PROGRAM REVIEWED*: No *COPY OF PRESCRIPTION DRUG MONITORING REPORT IN PATIENT JIMMY: No Home Medications: Home Meds Acetaminophen [Tylenol] 325 mg PO BID PRN 03/15/19 [History] Sertraline HCl 150 mg PO BEDTIME 03/15/19 [History] Vit A/C/E AC/Znox/Cupric Oxide [Eye Vitamin-Minerals Tablet] 1 each PO DAILY [History] tiZANidine HCl [Tizanidine HCl] 4 mg PO BEDTIME 03/15/19 [History] - Discharge Summary/Plan Comment DC Time >30 min.: Yes Discharge Summary/Plan Comment: Transfer to [facility]. Time with patient 15 minutes Time for orders 15 minutes Time for documentation 10 minutes - General Info Date of Service: 03/28/19 Admission Dx/Problem (Free Text: Admission Diagnosis/Problem Admission Diagnosis/Problem Impaired gait and mobility Functional Status: Reports: Pain Controlled, Tolerating Diet, Ambulating - Review of Systems General: Reports: Weakness, Fatigue, Malaise HEENT: Reports: No Symptoms Pulmonary: Denies: Shortness of Breath, Cough Cardiovascular: Denies: Chest Pain, Edema, Lightheadedness Gastrointestinal: Reports: Abdominal Pain. Denies: Nausea, Vomiting Genitourinary: Reports: No Symptoms Musculoskeletal: Reports: Back Pain (low back discomfort at times, legs are weak ) Skin: Reports: Bruising, Other (abrasions to arms) Neurological: Reports: Weakness - Patient Data Vitals - Most Recent: Last Vital Signs Temp 97.9 F 03/28/19 08:00 Pulse 68 03/28/19 08:00 Resp 18 03/28/19 08:00 BP 118/64 03/28/19 08:00 Pulse Ox 97 03/28/19 08:00 Weight - Most Recent: 190 lb 6.4 oz Med Orders - Current: Current Medications Acetaminophen (Tylenol) 325 mg PO BID PRN PRN Reason: Pain Enoxaparin Sodium (Lovenox) 40 mg SUBCUT DAILY@1999 [facility] Last Admin: 03/27/19 20:04 Dose: 40 mg Multivitamins/Minerals (Prosight) 1 tab PO DAILY [facility] Last Admin: 03/28/19 07:31 Dose: 1 tab Sertraline HCl (Zoloft) 150 mg PO BEDTIME [facility] Last Admin: 03/27/19 20:06 Dose: 150 mg Sodium Chloride (Saline Flush) 10 ml FLUSH ASDIRECTED PRN PRN Reason: Keep Vein Open Tizanidine HCl (Zanaflex) 4 mg PO BEDTIME [facility] Last Admin: 03/27/19 20:06 Dose: 4 mg Discontinued Medications Ceftriaxone Sodium (Rocephin) 1 gm IVPUSH Q24H [facility] Last Admin: 03/25/19 07:31 Dose: 1 gm Clindamycin Phosphate 300 mg/ (Premix) 50 mls @ 100 mls/hr IV Q6H [facility] Last Admin: 03/25/19 13:19 Dose: Not Given - Exam General: Reports: Alert, Oriented HEENT: Reports: Mucous Membr. Moist/[place] Neck: Reports: Supple Lungs: Reports: Decreased Breath Sounds Cardiovascular: Reports: Regular Rate, Regular Rhythm GI/Abdominal Exam: Normal Bowel Sounds, Soft, Non-Tender Extremities: Normal Inspection, No Pedal Edema Skin: Reports: Warm, Dry, Ecchymosis (arms) Neurological: Reports: No New Focal Deficit
== END 2019-03-28 11:24 | DRG 195 ==
LOC: UNDOADMIN 08:49 → CC.MS 08:49
PROVIDERS: ADMIT Nurse Practitioner; ATTEND Family Medicine
DX: J18.9 Pneumonia, unspecified organism (principal); S22.030D Wedge compression fracture of third thoracic vertebra, subsequent encounter for fracture with routine healing; S22.010D Wedge compression fracture of first thoracic vertebra, subsequent encounter for fracture with routine healing; S22.020D Wedge compression fracture of second thoracic vertebra, subsequent encounter for fracture with routine healing; Z79.899 Other long term (current) drug therapy
CPT/HCPCS: 36415; 71046; 77080; 80048; 85025; 97110-GP; A9270-GY; J0696; J1650; J3490

== ENCOUNTER 2021-08-28 13:27 | Observation (INO) | payer MEDICARE, MEDICAID ==
[2021-08-28 13:49] LABS: CHLORIDE,CL 100 mEq/L (98-106); SODIUM,NA 138 mEq/L (136-145)
[2021-08-28 14:07] LABS: ESTIMATED GFR 46 mL/min (>=60)
[2021-08-28] MEDS ORDERED: Iopamidol 755 Mg/ML 100 ML Bottle IVPUSH ONE (15:07)
[2021-08-28] MEDS ORDERED: Sodium Chloride 0.9% 10 ML Syringe FLUSH PRN (15:12)
[2021-08-28] MEDS ORDERED: Acetaminophen 325 MG Tab PO PRN (15:18)
[2021-08-28] MEDS ORDERED: Ondansetron 4 MG Tab.DIS PO PRN (15:18)
[2021-08-28] MEDS ORDERED: Ondansetron 4 MG/2 ML SDV IV PRN (15:18)
[2021-08-28] MEDS ORDERED: Sodium Chloride 0.9% 1,000 ML IV SCH (15:30)
[2021-08-28] MEDS ORDERED: Piperacillin/Tazobactam 4.5 GM in Sodium Chloride 0.9% 100 ML IV ONE (16:00)
[2021-08-28] MEDS ORDERED: Baclofen 10 MG Tab PO SCH (20:00)
[2021-08-28] MEDS ORDERED: Sertraline 100 MG Tab PO SCH ×2 (20:00)
[2021-08-28] MEDS ORDERED: Zolpidem 5 MG Tab PO SCH (20:00)
[2021-08-28] MEDS ORDERED: Non-Formulary Medication 1 Each (Budesonide/Formoterol Fumarate [Symbicort 80-4.5 Mcg Inha IH SCH (20:00)
[2021-08-28] MEDS: Gabapentin 100 MG Cap PO SCH (20:03)
[2021-08-28] MEDS: Polyvinyl Alcohol 1.4% Ophth Soln 15 ML Bottle EYEBOTH SCH (20:03)
[2021-08-28] MEDS: Baclofen 10 MG Tab PO SCH (20:04)
[2021-08-29] MEDS ORDERED: Piperacillin/Tazobactam 3.375 GM in Sodium Chloride 0.9% 100 ML IV SCH ×2
[2021-08-29] MEDS: Baclofen 10 MG Tab PO SCH (07:39)
[2021-08-29] MEDS: Polyvinyl Alcohol 1.4% Ophth Soln 15 ML Bottle EYEBOTH SCH (07:43)
[2021-08-29] MEDS: Gabapentin 100 MG Cap PO SCH (07:44)
[2021-08-29] MEDS ORDERED: Furosemide 40 MG Tab PO SCH ×2 (08:00)
[2021-08-29] MEDS ORDERED: Enoxaparin 40 MG/0.4 ML Syringe SUBCUT SCH (08:00)
[2021-08-29] MEDS ORDERED: predniSONE 5 MG Tab PO SCH ×2 (08:00)
[2021-08-29] MEDS ORDERED: Calcium Carbonate/Vitamin D3 1250 MG-5 MCG Tab PO SCH (08:00)
[2021-08-29] MEDS ORDERED: Amoxicillin/Clavulanate K 875-125 MG Tab PO SCH (08:00)
[2021-08-29 09:20] VITALS: BP 160/71; PULSE 81
== END 2021-08-29 10:07 | disposition home or self-care (01) ==
LOC: CC.MS 13:27 → CC.FCMC 13:27 → CC.MS 14:51 → UNDOADMOB 14:51 → CC.MS 15:18
PROVIDERS: ADMIT Family Medicine; ATTEND Nurse Practitioner Family
DX: K57.92 Diverticulitis of intestine, part unspecified, without perforation or abscess without bleeding (principal); D72.829 Elevated white blood cell count, unspecified; R79.82 Elevated C-reactive protein (CRP); J44.9 Chronic obstructive pulmonary disease, unspecified; G62.9 Polyneuropathy, unspecified; F41.9 Anxiety disorder, unspecified; F32.A Depression, unspecified; F03.90 Unspecified dementia, unspecified severity, without behavioral disturbance, psychotic disturbance, mood disturbance, and anxiety; Z79.899 Other long term (current) drug therapy
CPT/HCPCS: 36415; 74022; 74177; 80053; 81003; 82150; 83605; 83880; 84484; 85025; 86140; A9270; J1650; J2543; J7030; J7512; Q9967; 96365; 96366; 96372; G0378

== ENCOUNTER 2022-08-21 13:05 | Emergency (ER) | payer MEDICARE, MEDICAID ==
[2022-08-21] MEDS: Aspirin 81 MG Tab.Chew PO ONE (13:24)
[2022-08-21 13:50] LABS: BASOPHILS ABSOLUTE AUTO 0.02 10^3/uL (0.00-0.50); BASOPHILS PERCENT AUTO 0.2 % (0-1); EOSINOPHILS ABSOLUTE AUTO 0.12 10^3/uL (0.00-1.50); EOSINOPHILS PERCENT AUTO 1.1 % (0-6); HEMOGLOBIN 15.1 g/dL (14.0-18.0); IMMATURE GRAN ABSOLUTE AUTO 0.02 10^3/uL (0.00-0.49); IMMATURE GRAN PERCENT AUTO 0.2 % (0.0-4.9); LYMPHOCYTES ABSOLUTE AUTO 2.09 10^3/uL (0.60-5.00); MEAN CORPUSCULAR HEMOGLOBIN 31.4 pg (27.0-32.0); MEAN CORPUSCULAR HGB CONC 32.8 g/dL (32.0-36.0); MEAN CORPUSCULAR VOLUME 95.6 fL (83.0-97.0); MONOCYTES PERCENT AUTO 5.7 % (0-10); NEUTROPHILS ABSOLUTE AUTO 7.59 x10^3/uL (1.80-8.00); NEUTROPHILS PERCENT AUTO 72.8 % (41-71); PLATELET COUNT,PLT 180 10^3/uL (150-400); RED BLOOD CELL COUNT 4.81 x10^6/uL (4.50-6.00); WHITE BLOOD CELL COUNT,WBC 10.4 10^3/uL (4.0-11.0)
[2022-08-21 14:16] VITALS: PULSE 74
[2022-08-21 14:17] LABS: INR 0.97 (0.92-1.18)
[2022-08-21 14:21] LABS: ALBUMIN 3.8 g/dL (3.4-5.0); BILIRUBIN TOTAL 0.9 mg/dL (0.0-1.0); CALCIUM 9.5 mg/dL (8.4-10.1); CREATININE 1.7 mg/dL (0.7-1.3); EST CRCL DRUG DOSING (CG) 29.71 mL/min; MAGNESIUM 2.4 mg/dL (1.8-2.4); POTASSIUM,K 4.5 mEq/L (3.5-5.0); PROTEIN TOTAL,TP 7.1 g/dL (6.4-8.2)
[2022-08-21 14:32] LABS: CORONAVIRUS COVID-19 NAA NEGATIVE (NEGATIVE); INFLUENZA A NAA NEGATIVE (NEGATIVE); INFLUENZA B NAA NEGATIVE (NEGATIVE)
[2022-08-21 14:36] VITALS: BP 123/61
== END 2022-08-21 15:03 | disposition home or self-care (01) ==
LOC: CC.ED 13:05
DX: R07.89 Other chest pain (principal); R06.02 Shortness of breath; I50.9 Heart failure, unspecified; J44.9 Chronic obstructive pulmonary disease, unspecified; Z87.891 Personal history of nicotine dependence; Z79.899 Other long term (current) drug therapy; Z20.822 Contact with and (suspected) exposure to COVID-19
CPT/HCPCS: 0240U; 36415; 71046; 80053; 83690; 83735; 84484; 85025; 85610; 85730; 93005; 99285; A9270-GY